=== PATIENT | female | born 1935 | race Caucasian/White ===

== ENCOUNTER 2017-12-31 15:56 | Observation (INO) | payer OTHER ==
[2017-12-31 16:26] VITALS: BMI 34.9
--- NOTE | 2017-12-31 16:32 | PDOC ---
History of Present Illness - General Chief Complaint: Pain Stated Complaint: ABD PAIN Time Seen by Provider: 12/31/17 16:24 History Source: Patient Exam Limitations: No Limitations - History of Present Illness Initial Comments: 12/31/17 16:32 This is an 82 YOF with h/o UTI, CVA, HTN, dyslipidemia, dementia, and depression who was BIBEMS from her SNF for lower abdominal discomfort, lightheadedness, nausea, small amount of vomiting x1 which was NBNB, and near- syncope this afternoon while at her SNF. She described attempting to have a bowel movement while on the toilet when she became lightheaded and had blurred vision. Staff came to help her to her bed to lay down, but she notes that her symptoms persisted despite resting. She denies any recent f/c, headache, neck pain, actual fainting, numbness, tingling, focal weakness, swelling, change in weight, burning on urination, urinary frequency, hematuria, strong-smelling urine, black/bloody stool, or other symptoms. She does not recall ever having had these symptoms in the past. She has not gotten medications for the symptoms. She denies any change in her normal PO intake of food or liquid. Past History - Past Medical History Allergies/Adverse Reactions: Allergies Allergy/AdvReac Type Severity Reaction Status Date / Time No Known Allergies Allergy Verified 12/31/17 16:22 Home Medications: Ambulatory Orders Donepezil HCl [Aricept -] 10 mg PO HS #0 tablet 08/26/12 Amlodipine Besylate 5 mg PO DAILY 12/31/17 Aspirin 81 mg PO DAILY 12/31/17 Atorvastatin Ca [Lipitor] 10 mg PO DAILY 12/31/17 Cholecalciferol (Vitamin D3) [Vitamin D3] 1,000 unit PO DAILY 12/31/17 Ferrous Sulfate 325 mg PO DAILY 12/31/17 Furosemide [Lasix -] 40 mg PO DAILY 12/31/17 Guaifenesin [Robafen] 100 mg PO Q4H 12/31/17 Mirabegron [Myrbetriq] 25 mg PO DAILY 12/31/17 Vortioxetine Hydrobromide [Trintellix] 10 mg PO DAILY 12/31/17 Anemia: No Asthma: No Cancer: No Cardiac Disorders: No CVA: Yes COPD: No CHF: No Dementia: Yes (alzheimers) Diabetes: No GI Disorders: Yes Disorders: Yes (" incontience") HTN: Yes Hypercholesterolemia: Yes Liver Disease: No Seizures: No Thyroid Disease: Yes - Surgical History Abdominal Surgery: Yes Appendectomy: Yes Cardiac Surgery: No Cholecystectomy: Yes Lung Surgery: No Neurologic Surgery: No Orthopedic Surgery: No - Immunization History Td Vaccination: Yes TDAP Vaccination: Yes Immunization Up to Date: Yes - Suicide/Smoking/Psychosocial Hx Smoking Status: No Smoking History: Never smoked Number of Cigarettes Smoked Daily: 0 Hx Alcohol Use: No Drug/Substance Use Hx: No Substance Use Type: None Hx Substance Use Treatment: No Review of Systems - Review of Systems Able to Perform ROS?: Yes Constitutional: Yes: Weakness. No: Chills, Fever, Unexplained wgt Loss HEENTM: No: Nose Congestion, Throat Pain Respiratory: No: Cough, Shortness of Breath Cardiac (ROS): No: Chest Pain, Palpitations ABD/GI: Yes: Nausea, Vomiting (one small episode), Other (abdominal pain). No: Constipated, Diarrhea, Rectal Bleeding : No: Burning, Dysuria Musculoskeletal: No: Back Pain, Neck Pain Integumentary: No: Bruising, Rash Neurological: No: Headache, Numbness, Tingling, Weakness, Dizziness Endocrine: No: Unexplained Weight Gain, Unexplained Weight Loss *Physical Exam - Vital Signs Initial Vital Signs Temp Pulse Resp BP Pulse Ox 98.1 F 96 H 20 126/64 97 12/31/17 16:15 12/31/17 16:15 12/31/17 16:15 12/31/17 16:15 12/31/17 16:15 12/31/17 16:47 GENERAL: nontoxic and well-appearing, nourished, a bit confused and tangential, no acute distress, speaking in full sentences HEENT: PERRLA, EOMI, moist mucous membranes, no posterior pharyngeal erythema, no tonsillar swelling or exudates, no cervical lymphadenopathy NECK: No midline ttp, no spinal stepoff or deformity, full ROM, supple CARDIOVASCULAR: Regular rate and rhythm, normal S1S2, 1/6 systolic murmur, no gallops or rubs, radial and DP pulses 2+ and symmetric, capillary refill <2 seconds, extremities warm and well-perfused Chest wall: Normal appearance, no rash, no bruising, no costal stepoff or deformity, nontender to compression LUNGS/RESPIRATORY: Occasional cough, no respiratory distress, normal and symmetric chest movements during respirations, lungs CTA bilaterally, equal breath sounds, no cyanosis, no nail clubbing GI/ABDOMEN: Normal symmetric appearance, normoactive bowel sounds, soft, mild diffuse lower abdominal tenderness to palpation, not peritoneal, no midline pulsatile masses, no palpated organomegaly : No CVA tenderness BACK: No midline ttp or stepoff or deformity of thoracic or lumbar spine EXTREMITIES: distal pulses 2+, warm and well-perfused, no LE pitting edema SKIN: Warm and dry, no pallor, no jaundice, no bruising, no rash, no skin breakdown, no cuts, no lesions NEUROLOGICAL: GCS 15, CN II-XII grossly intact, gait not tested, moving all extremities, 5/5 strength proximally and distally, no facial droop, no decreased sensation Heart Score/ECG Review #1 12/31/17 18:19 NSR, rate 71, normal axis and intervals, low voltage, no ischemic ST-T changes. ED Treatment Course - LABORATORY CBC & Chemistry Diagram: 12/31/17 17:25 12/31/17 17:25 Medical Decision Making - Medical Decision Making 12/31/17 17:16 Elderly female p/w lower abdominal pain, nausea, 1 episode vomiting, lightheadedness/pre-syncopal episode. VS: Exam: As noted in Physical Exam section. DDX IBNLT: UTI/pyelonephritis, renal colic, appendicitis, diverticulitis wwo abscess or perforation, colitis, SBO, bowel ischemia, bowel perforation, constipation, musculoskeletal, etc. W/U ordered: CBCD CMP Mg Phos Coags T&S UA UCx Abdominal/Pelvis CT TX ordered: IVF, Ofirmev Laboratory Tests 12/31/17 12/31/17 12/31/17 17:25 17:25 17:25 WBC 12.4 H RBC 5.27 H Hgb 14.3 Hct 44.8 D MCV 85.1 MCH 27.1 MCHC 31.8 L RDW 15.7 H Plt Count 297 MPV 8.8 Absolute Neuts (auto) 10.8 H Neutrophils % 87.5 H Lymphocytes % 6.5 L D Monocytes % 4.3 Eosinophils % 1.1 Basophils % 0.6 Nucleated RBC % 0 Sodium 142 Potassium 4.3 Chloride 107 Carbon Dioxide 26 Anion Gap 8 BUN 26 H Creatinine 1.2 Creat Clearance w eGFR 42.90 Random Glucose 92 Lactic Acid 1.4 Calcium 9.7 Phosphorus 3.1 Magnesium 2.4 Total Bilirubin 0.5 AST 22 ALT 22 Alkaline Phosphatase 91 Creatine Kinase 95 Troponin I 0.09 H Total Protein 7.5 Albumin 4.0 Troponin 0.09. This will be trended. 12/31/17 18:32 Reassessment: Patient states continued low abdominal pain/fullness. States continued nausea. Ordered is Zofran 4 mg. Vital Signs Temperature 98.1 F 12/31/17 16:15 Pulse Rate 97 H 12/31/17 18:35 Respiratory Rate 20 12/31/17 18:35 Blood Pressure 130/73 12/31/17 18:35 O2 Sat by Pulse Oximetry (%) 96 12/31/17 18:35 I spoke with the patient's daughter regarding the finding of cyst on her CT. I did convey that many times these cysts are benign but could possibly be malignant. I do strongly recommend to them that the patient needs followup regarding this potentially malignant cyst. The patient had troponin above reference range. The Pt is unsafe for discharge at this time. They require further hospital observation, workup, and treatment. Page sent to Dr. Chance agricultural extension officer for Dr. Gerber's service. 12/31/17 21:[address] Chance. The patient is to stay in Tele Obs. Decision to Admit order placed to Dr. Turner at Dr. Chance's request. 12/31/17 23:19 Family is leaving for the night, wish to be called with any significant updates. Daughter: Alberto at [phone]. Granddaughter in-law: Angelica at [phone]. *DC/Admit/Observation/Transfer Diagnosis at time of Disposition: Near syncope, Troponin I above reference range UTI (urinary tract infection) Qualifiers: Urinary tract infection type: acute cystitis Hematuria presence: without hematuria Qualified Code(s): N30.00 - Acute cystitis without hematuria Abdominal pain Qualifiers: Abdominal location: generalized Qualified Code(s): R10.84 - Generalized abdominal pain - Discharge Dispostion Condition at time of disposition: Guarded Decision to Admit order: Yes - Referrals Referrals: Valentín Pollard MD [Non Staff, Medical] - - Patient Instructions - Post Discharge Activity
[2017-12-31] MEDS ORDERED: SODIUM CHLORIDE 0.9% 500 ML INFUS.BAG IV ONE (17:26)
[2017-12-31] MEDS ORDERED: ACETAMINOPHEN 1000 MG/100 ML VIAL (NON FORMULARY) IVPB ONE (17:26)
[2017-12-31 17:47] LABS: BASO % 0.6 % (0-2.0); EOS % 1.1 % (0-4.5); HEMATOCRIT 44.8 % (32.4-45.2); HEMOGLOBIN 14.3 GM/dL (10.7-15.3); LYMPH % 6.5 % (8-40); MCH 27.1 pg (25.7-33.7); MCHC 31.8 g/dl (32.0-36.0); MEAN CELL VOLUME 85.1 fl (80-96); MEAN PLT VOLUME 8.8 fl (7.5-11.1); MONO % 4.3 % (3.8-10.2); NEUT % 87.5 % (42.8-82.8); PLATELET COUNT 297 K/MM3 (134-434); RBC 5.27 M/mm3 (3.60-5.2); RDW 15.7 % (11.6-15.6); WHITE BLOOD COUNT 12.4 K/mm3 (4.0-10.0)
[2017-12-31 18:13] LABS: ALK PHOS 91 U/L (45-117); ANION GAP 8 MMOL/L (8-16); BILIRUBIN,TOTAL 0.5 mg/dL (0.2-1); BLOOD UREA NITROGEN 26 mg/dL (7-18); CALCIUM 9.7 mg/dL (8.5-10.1); CHLORIDE 107 mmol/L (98-107); CO2 26 mmol/L (21-32); CREATININE 1.2 mg/dL (0.55-1.3); GLUCOSE,RANDOM 92 mg/dL (74-106); MAGNESIUM 2.4 mg/dL (1.8-2.4); PHOSPHOROUS 3.1 mg/dL (2.5-4.9); POTASSIUM 4.3 mmol/L (3.5-5.1); SGOT/AST 22 U/L (15-37); SGPT/ALT 22 U/L (13-61); SODIUM 142 mmol/L (136-145); TOT PROT 7.5 g/dl (6.4-8.2)
[2017-12-31] MEDS ORDERED: ACETAMINOPHEN INJECTION 100 ML IVPB ONE (18:28)
[2017-12-31] MEDS ORDERED: ONDANSETRON 4 MG/2 ML VIAL IVPUSH ONE (18:33)
--- NOTE | 2017-12-31 18:35 | PDOC ---
Attending Attestation - Resident Resident Name: Radhika Butler - ED Attending Attestation I have performed the following: I have examined & evaluated the patient, The case was reviewed & discussed with the resident, I agree w/resident's findings & plan, Exceptions are as noted - HPI HPI: 12/31/17 18:33 82-year-old female patient with history of urinary tract infection, stroke, hypertension, hyperlipidemia, dementia, depression brought in from independent living assisted facility for near-syncope and lower abdominal pain. The patient reports that she felt unwell today. As she tried to move her bowels she started noticing she is becoming lightheaded and dizzy. She had one episode of vomiting. She did not faint. Denies headache, chest pain or shortness of breath. But did develop diffuse lower abdominal pain. She reports a history of appendectomy, cholecystectomy. Denies urinary symptoms. Because she continued felt lightheaded and unwell even after laying down, the psychology assistant at the living assisted facility sent the patient to the ER. - Physicial Exam PE: 12/31/17 18:33 GENERAL: Awake, alert, and fully oriented, in no acute distress HEAD: No signs of trauma EYES: EOMI, sclera anicteric, conjunctiva clear ENT: Auricles normal inspection, hearing grossly normal, nares patent, Moist mucosa NECK: Normal ROM, supple, LUNGS: Breath sounds equal, clear to auscultation bilaterally. No wheezes, and no crackles HEART: Regular rate and rhythm, normal S1 and S2, no murmurs, rubs or gallops ABDOMEN: Soft, diffuse lower abdominal tenderness No guarding, no rebound. No masses EXTREMITIES: Normal range of motion, no edema. No clubbing or cyanosis. No cords, erythema, or tenderness NEUROLOGICAL: Cranial nerves II through XII grossly intact. Normal speech SKIN: Warm, Dry, normal turgor, no rashes or lesions noted. - Medical Decision Making 12/31/17 18:34 Vital Signs Temp Pulse Resp BP Pulse Ox 98.1 F 96 H 20 126/64 97 12/31/17 16:15 12/31/17 16:15 12/31/17 16:15 12/31/17 16:15 12/31/17 16:15 This is an 82-year-old female patient who developed near syncope in the setting of moving her bowels. This could potentially be vasovagal syncope or near- syncope but given her cardiac history, we'll obtain a troponin and place patient on telemetry. We will need to investigate lower abdominal pain with loose stools with a CT scan abdomen pelvis. Differential includes diverticulitis , colitis, gastroenteritis. We'll obtain labs, treat pain and reassess. 12/31/17 20:41 CBC, BMP 12/31/17 17:25 12/31/17 17:25 CMP Sodium 142 mmol/L (136-145) 12/31/17 17:25 Potassium 4.3 mmol/L (3.5-5.1) 12/31/17 17:25 Chloride 107 mmol/L (98-107) 12/31/17 17:25 Carbon Dioxide 26 mmol/L (21-32) 12/31/17 17:25 Anion Gap 8 MMOL/L (8-16) 12/31/17 17:25 BUN 26 mg/dL (7-18) H 12/31/17 17:25 Creatinine 1.2 mg/dL (0.55-1.3) 12/31/17 17:25 Creat Clearance w eGFR 42.90 (>60) 12/31/17 17:25 Random Glucose 92 mg/dL (74-106) 12/31/17 17:25 Lactic Acid 1.4 mmol/L (0.4-2.0) 12/31/17 17:25 Calcium 9.7 mg/dL (8.5-10.1) 12/31/17 17:25 Phosphorus 3.1 mg/dL (2.5-4.9) 12/31/17 17:25 Magnesium 2.4 mg/dL (1.8-2.4) 12/31/17 17:25 Total Bilirubin 0.5 mg/dL (0.2-1) 12/31/17 17:25 AST 22 U/L (15-37) 12/31/17 17:25 ALT 22 U/L (13-61) 12/31/17 17:25 Alkaline Phosphatase 91 U/L (45-117) 12/31/17 17:25 Creatine Kinase 95 IU/L (26-192) 12/31/17 17:25 Troponin I 0.09 ng/ml (0.00-0.05) H 12/31/17 17:25 Total Protein 7.5 g/dl (6.4-8.2) 12/31/17 17:25 Albumin 4.0 g/dl (3.4-5.0) 12/31/17 17:25 Urine Test Results Urine Color Yellow 12/31/17 19:10 Urine Appearance Slcloudy 12/31/17 19:10 Urine pH 5.0 (5.0-8.0) 12/31/17 19:10 Ur Specific [place] 1.013 (1.010-1.035) 12/31/17 19:10 Urine Protein Negative (NEGATIVE) 12/31/17 19:10 Urine Glucose (UA) Negative (NEGATIVE) 12/31/17 19:10 Urine Ketones Negative (NEGATIVE) 12/31/17 19:10 Urine Blood Negative (NEGATIVE) 12/31/17 19:10 Urine Nitrite Negative (NEGATIVE) 12/31/17 19:10 Urine Bilirubin Negative (<2.0 mg/dL) 12/31/17 19:10 Ur Leukocyte Esterase 1+ (NEGATIVE) H 12/31/17 19:10 Ur Epithelial Cells Rare /HPF (FEW) 12/31/17 19:10 Urine Bacteria Rare /hpf (NONE SEEN) 12/31/17 19:10 CAT scan demonstrates no acute findings of the head and pelvis however, there is a persistent left ovarian cyst which needs to follow-up with a drying oven tender. As concerns for malignancy is always an issue. We'll inform the patient's daughter regards to the findings. Otherwise, the patient has no other acute findings. There is a small punctate focus of air and gas in the urinary bladder suggestive recent catheterization. UA shows positive for UTI. Microbiology reviewed. Will treat with ceftriaxone. Given the symptoms, and the slightly elevated troponin, we will observe the patient hospital under telemetry. It may be possible that the patient may be having enteritis or viral syndrome for the symptoms. We'll continue give IV fluids and admit the patient to hospital. 12/31/17 20:42 Heart Score/ECG Review #1 ECG reviewed & interpreted by me at: 18:20 12/31/17 18:34 NSR 71, no std/kaila, T wave flat III, low voltage QRS, QTC 458 msec #2 ECG reviewed & interpreted by me at: 01:00 01/01/18 00:59 NSR 70, no std/kaila, T wave flat III, avF, V5-V6, QTC 447 msec
[2017-12-31] MEDS ORDERED: ONDANSETRON 4 MG/2 ML VIAL ONE (19:17)
[2017-12-31 19:51] LABS: URINE APPEARANCE SLCLOUDY; URINE BILIRUBIN NEGATIVE (<2.0 mg/dL); URINE COLOR YELLOW; URINE GLUCOSE (UA) NEGATIVE (NEGATIVE); URINE KETONE NEGATIVE (NEGATIVE); URINE LEUK ESTERASE 1+ (NEGATIVE); URINE NITRITE NEGATIVE (NEGATIVE); URINE PROTEIN NEGATIVE (NEGATIVE); URINE UROBILINOGEN NEGATIVE mg/dL (0.2-1.0)
[2017-12-31 20:02] LABS: EPI CELLS RARE /HPF (FEW); URINE BACTERIA RARE /hpf (NONE SEEN)
[2017-12-31] MEDS ORDERED: CEFTRIAXONE 1,000 MG in DEXTROSE 5%-WATER - 50 ML IVPB ONE (20:42)
[2017-12-31] MEDS ORDERED: CEFTRIAXONE 1 GM/50 ML BAG ONE (21:12)
[2017-12-31] MEDS ORDERED: ONDANSETRON 4 MG/2 ML VIAL IVPUSH PRN (22:01)
[2017-12-31] MEDS ORDERED: MAGNESIUM HYDROX 2400MG/30ML ORAL SUSPENSION 30 ML CUP PO PRN (22:02)
[2017-12-31 23:59] LABS: CHOLESTEROL 203 mg/dL (50-200); HDL CHOLESTEROL 60 mg/dL (40-60); TRIGLYCERIDES 175 mg/dL (0-150)
[2018-01-01] MEDS: SODIUM CHLORIDE 1,000 ML IV SCH ×2 (00:38→21:38)
[2018-01-01] MEDS: DONEPEZIL HCL 10 MG TABLET (FP) PO SCH ×2 (00:53→21:37)
[2018-01-01 08:37] LABS: BASO % 0.2 % (0-2.0); EOS % 1.4 % (0-4.5); HEMATOCRIT 40.9 % (32.4-45.2); HEMOGLOBIN 13.2 GM/dL (10.7-15.3); LYMPH % 13.1 % (8-40); MCH 27.8 pg (25.7-33.7); MCHC 32.3 g/dl (32.0-36.0); MEAN CELL VOLUME 85.9 fl (80-96); MEAN PLT VOLUME 8.6 fl (7.5-11.1); MONO % 7.1 % (3.8-10.2); NEUT % 78.2 % (42.8-82.8); PLATELET COUNT 278 K/MM3 (134-434); RBC 4.76 M/mm3 (3.60-5.2); RDW 15.6 % (11.6-15.6); WHITE BLOOD COUNT 9.5 K/mm3 (4.0-10.0)
[2018-01-01 08:50] LABS: ALBUMIN 3.4 g/dl (3.4-5.0); ALK PHOS 80 U/L (45-117); ANION GAP 8 MMOL/L (8-16); BILIRUBIN,TOTAL 0.8 mg/dL (0.2-1); BLOOD UREA NITROGEN 21 mg/dL (7-18); CALCIUM 9.2 mg/dL (8.5-10.1); CHLORIDE 109 mmol/L (98-107); CO2 26 mmol/L (21-32); CREATININE 1.1 mg/dL (0.55-1.3); GLUCOSE,RANDOM 98 mg/dL (74-106); POTASSIUM 4.2 mmol/L (3.5-5.1); SGOT/AST 19 U/L (15-37); SGPT/ALT 18 U/L (13-61); SODIUM 142 mmol/L (136-145); TOT PROT 6.5 g/dl (6.4-8.2)
--- NOTE | 2018-01-01 09:30 | EKG ---
Test Reason : Blood Pressure : / mmHG Vent. Rate : 071 BPM Atrial Rate : 071 BPM P-R Int : 186 ms QRS Dur : 074 ms QT Int : 422 ms P-R-T Axes : 036 021 039 degrees QTc Int : 458 ms NORMAL SINUS RHYTHM LOW VOLTAGE QRS BORDERLINE ECG WHEN COMPARED WITH ECG OF 27-MAR-2013 11:50, NONSPECIFIC T WAVE ABNORMALITY NOW EVIDENT IN INFERIOR LEADS Confirmed by ANNA LAMBERT, RUBY ([id number]) on 01/01/2018 9:30:21 AM Referred By: Confirmed By:RUBY CASTILLO MD
[2018-01-01] MEDS ORDERED: ASPIRIN 81 MG CHEWABLE TABLETS ONE (10:27)
[2018-01-01] MEDS: ASPIRIN 81 MG CHEWABLE TABLETS PO SCH (10:30)
--- NOTE | 2018-01-01 11:26 | HP ---
Admitting History and Physical - Primary Care Physician PCP: Duy Gerber - Admission Chief Complaint: Near syncope History of Present Illness: 82 yrs old F lives at home independent assisted living resident H/O HTN, dyslipedemia, Dementia, yesterday present with c/o lower abdominal pain and an episode of near of syncope, patient was having lower abdominal discomfort since morning on felt Dizzy, light headed and weak while straining came to Ed for evaluation in the Ed hypodermically stable denies any chest pain, SOB or Palpitation no c/o focal neurological weakness or LOC denies any head ache or diplopia, lab w/u shows mildly elevated BUN/Creat from base line UA + for WBC, CT abd no acute changes admitted for further evaluation and management to R/O ACS History Source: Patient - Past Medical History PAPER COLORER: Yes: Alzheimer's, CVA, Dementia Cardiovascular: Yes: HTN, Hyperlipdemia - Smoking History Smoking history: Never smoked Aproximately how many cigarettes per day: 0 - Alcohol/Substance Use Hx Alcohol Use: No - Social History Usual Living Arrangement: Yes: Assisted Living Home Medications - Allergies Allergies/Adverse Reactions: Allergies Allergy/AdvReac Type Severity Reaction Status Date / Time No Known Allergies Allergy Verified 12/31/17 16:22 - Home Medications Home Medications: Ambulatory Orders Donepezil HCl [Aricept -] 10 mg PO HS #0 tablet 08/26/12 Amlodipine Besylate 5 mg PO DAILY 12/31/17 Aspirin 81 mg PO DAILY 12/31/17 Atorvastatin Ca [Lipitor] 10 mg PO DAILY 12/31/17 Cholecalciferol (Vitamin D3) [Vitamin D3] 1,000 unit PO DAILY 12/31/17 Ferrous Sulfate 325 mg PO DAILY 12/31/17 Furosemide [Lasix -] 40 mg PO DAILY 12/31/17 Guaifenesin [Robafen] 100 mg PO Q4H 12/31/17 Mirabegron [Myrbetriq] 25 mg PO DAILY 12/31/17 Vortioxetine Hydrobromide [Trintellix] 10 mg PO DAILY 12/31/17 Family Disease History - Family Disease History Family History: Unremarkable Review of Systems - Review of Systems Constitutional: denies: Chills, Diaphoresis, Fever, Lethargy Eyes: denies: Blind Spots, Blurred Vision, Double Vision, Eye Pain HENT: denies: Difficult Swallowing, Ear Discharge, Ear Pain, Epistaxis Neck: denies: Decreased ROM, Lumps, Pain on Movement, Stiffness Cardiovascular: denies: Chest Pain, Edema, Palpitations, Shortness of Breath Respiratory: denies: Cough, Exercise Intolerance, Hemoptysis, Orthopnea Gastrointestinal: reports: Abdominal Pain, Constipation, Nausea, Vomiting. denies: Bloating, Diarrhea, Indigestion, Melena, Rectal Bleeding Genitourinary: denies: Burning, Discharge, Dysuria Musculoskeletal: denies: Back Pain, Crepitus, Decreased ROM Integumentary: denies: Blister, Bruising, Change in Color Neurological: denies: Change in Speech, Confusion, Dizziness Endocrine: denies: Excessive Sweating, Flushing Hematology/Lymphatic: denies: Easily Bruised Psychiatric: denies: Altered Sleep Pattern Physical Examination Vital Signs: Vital Signs Temperature 98.1 F 12/31/17 16:15 Pulse Rate 80 01/01/18 07:56 Respiratory Rate 17 01/01/18 07:56 Blood Pressure 123/57 L 01/01/18 07:56 O2 Sat by Pulse Oximetry (%) 89 L 01/01/18 07:56 Constitutional: Yes: Well Nourished, No Distress, Calm HENT: Yes: Atraumatic Neck: Yes: Supple, Trachea Midline. No: Decreased ROM, Lymphadenopathy Cardiovascular: Yes: Regular Rate and Rhythm, S1. No: Bruit, JVD, Murmur Respiratory: Yes: Regular, CTA Bilaterally Gastrointestinal: Yes: Normal Bowel Sounds, Soft Musculoskeletal: No: Back Pain, Joint Stiffness Extremities: Yes: WNL Edema: No Peripheral Pulses: Left Doralis Pedis: 1+, Right Dorsalis Pedis: 1+ Neurological: Yes: Alert, Oriented. No: Aphasia, Asterixis ...Motor Strength: WNL, LUE, LLE, RUE, RLE Labs: CBC, BMP 01/01/18 06:00 01/01/18 06:00 Imaging - Results Chest X-ray: Report Reviewed (No acute infiltrates) Cat Scan: Report Reviewed (Abdomen and Pelvis; Unremarkable) EKG: Report Reviewed ([address] chnages ? inf leads changes) Problem List - Problems (1) Near syncope Assessment/Plan: Most likely Neurocardiogenic considering old age will evaluate to R/O Cardiac etioloy, mild falt elevation of troponin I on ASA, statin, F/U Cardiology input ECHO , Lipid and TSH. Code(s): R55 - SYNCOPE AND COLLAPSE (2) Troponin I above reference range Assessment/Plan: Mild elevation no chest pain or SOB will F/U serial CE Trop I 0.09 and 0.11, no interval EKG changes, Cont ASA increase Lipitor to 20 as LDL 128 F/U Cardioloy recommondations Code(s): R74.8 - ABNORMAL LEVELS OF OTHER SERUM ENZYMES (3) Abdominal pain Assessment/Plan: Resolved probably due to UTI CT abd no acute changes Code(s): R10.9 - UNSPECIFIED ABDOMINAL PAIN Qualifiers: Abdominal location: generalized Qualified Code(s): R10.84 - Generalized abdominal pain (4) UTI (urinary tract infection) Assessment/Plan: Cont Ceftriaxone F/U U culture Code(s): N39.0 - URINARY TRACT INFECTION, SITE NOT SPECIFIED Qualifiers: Urinary tract infection type: acute cystitis Hematuria presence: without hematuria Qualified Code(s): N30.00 - Acute cystitis without hematuria (5) HTN (hypertension) Assessment/Plan: Cont Home meds Code(s): I10 - ESSENTIAL (PRIMARY) HYPERTENSION (6) Dyslipidemia Assessment/Plan: Cont Lipitor Code(s): E78.5 - HYPERLIPIDEMIA, UNSPECIFIED (7) Dementia Assessment/Plan: Stable cont Home meds Code(s): F03.90 - UNSPECIFIED DEMENTIA WITHOUT BEHAVIORAL DISTURBANCE (8) CKD (chronic kidney disease) stage 3, GFR 30-59 ml/min Assessment/Plan: Mild elevation of BUN/Cret from base line improving with IV Hydration Hold Lasix Code(s): N18.3 - CHRONIC KIDNEY DISEASE, STAGE 3 (MODERATE) (9) Acute kidney failure Assessment/Plan: Base line CKD 3 admitted with elevated BUN/Cret improvig on Hydration Hold Lasix Code(s): N17.9 - ACUTE KIDNEY FAILURE, UNSPECIFIED (10) Cough Assessment/Plan: CXR normal cont cough syrup on IV Ceftriaxone Code(s): R05 - COUGH
[2018-01-01] MEDS: CEFTRIAXONE 1 GM in DEXTROSE 5%-WATER - 50 ML IVPB SCH (14:15)
[2018-01-01] MEDS ORDERED: CEFTRIAXONE 1 GM/50 ML BAG ONE (14:25)
--- NOTE | 2018-01-01 17:42 | CON.CARD ---
Cardiology Consult (text) - Consultation Consultation Note: cc: presyncope hpi: 82 f hx htn, hld, cva, here with presyncope. Pt was at CT and went to use bathroom to have BM. While sitting on toilet she felt lightheaded and nausea. She got up and laid down but still felt dizzy. No cp sob palps loc pnd orthopnea le edema. In ER feeling better now. pmh: per hpi psh: cholecystectomy social: no tob fam: nc ros: per hpi; no diarrhea castrejon vision changes muscle pains abd pain hematuria dysuria meds: Home Medications Medication Instructions Recorded Donepezil HCl [Aricept -] 10 mg PO HS #0 tablet 08/26/12 Amlodipine Besylate 5 mg PO DAILY 12/31/17 Aspirin 81 mg PO DAILY 12/31/17 Atorvastatin Ca [Lipitor] 10 mg PO DAILY 12/31/17 Cholecalciferol (Vitamin D3) 1,000 unit PO DAILY 12/31/17 [Vitamin D3] Ferrous Sulfate 325 mg PO DAILY 12/31/17 Furosemide [Lasix -] 40 mg PO DAILY 12/31/17 Guaifenesin [Robafen] 100 mg PO Q4H 12/31/17 Mirabegron [Myrbetriq] 25 mg PO DAILY 12/31/17 Vortioxetine Hydrobromide 10 mg PO DAILY 12/31/17 [Trintellix] pe: Vital Signs Period Temp Pulse Resp BP Sys/Maharaj Pulse Ox Last 24 Hr 98.8 F 75-97 17-20 108-130/57-73 89-96 nad no jvd rrr s1s2 no mrg cta bl nl eff aaox3 no le e/c/c abd nt nd pos bs no jaundice diaphoresis pos dp pt no carotid bruits Laboratory Last Values WBC 9.5 K/mm3 (4.0-10.0) 01/01/18 06:00 RBC 4.76 M/mm3 (3.60-5.2) 01/01/18 06:00 Hgb 13.2 GM/dL (10.7-15.3) 01/01/18 06:00 Hct 40.9 % (32.4-45.2) 01/01/18 06:00 MCV 85.9 fl (80-96) 01/01/18 06:00 MCH 27.8 pg (25.7-33.7) 01/01/18 06:00 MCHC 32.3 g/dl (32.0-36.0) 01/01/18 06:00 RDW 15.6 % (11.6-15.6) 01/01/18 06:00 Plt Count 278 K/MM3 (134-434) 01/01/18 06:00 MPV 8.6 fl (7.5-11.1) 01/01/18 06:00 Absolute Neuts (auto) 7.5 K/mm3 (1.5-8.0) 01/01/18 06:00 Neutrophils % 78.2 % (42.8-82.8) 01/01/18 06:00 Lymphocytes % 13.1 % (8-40) D 01/01/18 06:00 Monocytes % 7.1 % (3.8-10.2) 01/01/18 06:00 Eosinophils % 1.4 % (0-4.5) 01/01/18 06:00 Basophils % 0.2 % (0-2.0) 01/01/18 06:00 Nucleated RBC % 0 % (0-0) 01/01/18 06:00 Sodium 142 mmol/L (136-145) 01/01/18 06:00 Potassium 4.2 mmol/L (3.5-5.1) 01/01/18 06:00 Chloride 109 mmol/L (98-107) H 01/01/18 06:00 Carbon Dioxide 26 mmol/L (21-32) 01/01/18 06:00 Anion Gap 8 MMOL/L (8-16) 01/01/18 06:00 BUN 21 mg/dL (7-18) H 01/01/18 06:00 Creatinine 1.1 mg/dL (0.55-1.3) 01/01/18 06:00 Creat Clearance w eGFR 47.43 (>60) 01/01/18 06:00 Random Glucose 98 mg/dL (74-106) 01/01/18 06:00 Lactic Acid 1.4 mmol/L (0.4-2.0) 12/31/17 17:25 Calcium 9.2 mg/dL (8.5-10.1) 01/01/18 06:00 Phosphorus 3.1 mg/dL (2.5-4.9) 12/31/17 17:25 Magnesium 2.4 mg/dL (1.8-2.4) 12/31/17 17:25 Total Bilirubin 0.8 mg/dL (0.2-1) 01/01/18 06:00 AST 19 U/L (15-37) 01/01/18 06:00 ALT 18 U/L (13-61) 01/01/18 06:00 Alkaline Phosphatase 80 U/L (45-117) 01/01/18 06:00 Creatine Kinase 95 IU/L (26-192) 12/31/17 17:25 Troponin I 0.11 ng/ml (0.00-0.05) H 01/01/18 06:00 Total Protein 6.5 g/dl (6.4-8.2) 01/01/18 06:00 Albumin 3.4 g/dl (3.4-5.0) 01/01/18 06:00 Triglycerides 175 mg/dL (0-150) H 12/31/17 17:25 Cholesterol 203 mg/dL (50-200) H 12/31/17 17:25 Total LDL Cholesterol 128 mg/dL (5-100) H 12/31/17 17:25 HDL Cholesterol 60 mg/dL (40-60) 12/31/17 17:25 TSH 0.69 uIU/ml (0.358-3.74) 01/01/18 06:00 Urine Color Yellow 12/31/17 19:10 Urine Appearance Slcloudy 12/31/17 19:10 Urine pH 5.0 (5.0-8.0) 12/31/17 19:10 Ur Specific [place]ord 1.013 (1.010-1.035) 12/31/17 19:10 Urine Protein Negative (NEGATIVE) 12/31/17 19:10 Urine Glucose (UA) Negative (NEGATIVE) 12/31/17 19:10 Urine Ketones Negative (NEGATIVE) 12/31/17 19:10 Urine Blood Negative (NEGATIVE) 12/31/17 19:10 Urine Nitrite Negative (NEGATIVE) 12/31/17 19:10 Urine Bilirubin Negative (<2.0 mg/dL) 12/31/17 19:10 Urine Urobilinogen Negative mg/dL (0.2-1.0) 12/31/17 19:10 Ur Leukocyte Esterase 1+ (NEGATIVE) H 12/31/17 19:10 Urine WBC (Auto) 26 /hpf (3-5) 12/31/17 19:10 Urine RBC (Auto) 1 /hpf (0-3) 12/31/17 19:10 Ur Epithelial Cells Rare /HPF (FEW) 12/31/17 19:10 Urine Bacteria Rare /hpf (NONE SEEN) 12/31/17 19:10 echo 03/2013: nl lv/rv, mild mr, mild mod tr, mild ar, rvsp 30-40 ecg: sr nl intervals no ischemic changes cxr: clear lungs a/p: 82 f hx htn, hld, cva, here with presyncope. presyncope: -seems vasovagal -no signs acs, chf, arrhythmia -check ortho vs -check echo -monitor tele -rec'd increase po hydration htn: -stable hld: -cont statin pos trops: -borderline trops, nl ck, similar to prior values from 2012 and 2013, not c/w acs
--- NOTE | 2018-01-01 18:02 | EKG ---
Test Reason : Blood Pressure : / mmHG Vent. Rate : 070 BPM Atrial Rate : 070 BPM P-R Int : 182 ms QRS Dur : 072 ms QT Int : 408 ms P-R-T Axes : 041 021 032 degrees QTc Int : 440 ms NORMAL SINUS RHYTHM NORMAL ECG WHEN COMPARED WITH ECG OF 01-JAN-2018 00:54, NO SIGNIFICANT CHANGE WAS FOUND Confirmed by RUBY CASTILLO MD ([id number]) on 01/01/2018 6:01:57 PM Referred By: Delia MARRUFO Confirmed By:RUBY CASTILLO MD
[2018-01-01] MEDS: guaiFENesin 200 MG/10 ML 10 ML UNIT-DOSE CUPS PO PRN (21:36)
[2018-01-01] MEDS: ATORVASTATIN CA 20 MG TABLET (FP) PO SCH (21:37)
[2018-01-01] MEDS: NYSTATIN 100000 UNIT/GM TOPICAL OINTMENT 15 GM TUBE TP SCH (21:39)
[2018-01-01] MEDS ORDERED: ATORVASTATIN CA 10 MG TABLET (FP) PO SCH (22:00)
[2018-01-01] MEDS ORDERED: PT OWN MED DRAWER 7, Y5N ONE (22:00)
[2018-01-02] MEDS ORDERED: ACETAMINOPHEN 325 MG TABLET (FP) ONE (02:40)
[2018-01-02] MEDS ORDERED: cefTRIAXone SODIUM 1 GM VIAL ONE (09:27)
[2018-01-02] MEDS ORDERED: DEXTROSE 5%-WATER - 50 ML IVPB ONE (09:28)
[2018-01-02] MEDS: CEFTRIAXONE 1 GM in DEXTROSE 5%-WATER - 50 ML IVPB SCH (09:34)
[2018-01-02] MEDS: NYSTATIN 100000 UNIT/GM TOPICAL OINTMENT 15 GM TUBE TP SCH ×2 (09:34→21:14)
[2018-01-02] MEDS: ASPIRIN 81 MG CHEWABLE TABLETS PO SCH (09:35)
[2018-01-02] MEDS: amLODIPine BESYLATE 5 MG TABLET (FP) PO SCH (09:35)
[2018-01-02] MEDS ORDERED: PATIENT'S OWN MEDICATION (NON-FORMULARY) (Mirabegron [Myrbetriq] 25 MG) PO SCH (10:00)
[2018-01-02] MEDS ORDERED: PATIENT'S OWN MEDICATION (NON-FORMULARY) (Vortioxetine Hydrobromide [Trintellix] 10 MG) PO SCH (10:00)
--- NOTE | 2018-01-02 10:31 | PN ---
Progress Note (short form) - Note Progress Note: s: no cp sob palps dizzy o: Vital Signs Period Temp Pulse Resp BP Sys/Maharaj Pulse Ox Last 24 Hr 98.7 F-98.8 F 75-75 20 108-134/61-70 95 nad no jvd rrr s1s2 no mrg cta bl nl eff aaox3 no le e/c/c abd nt nd pos bs no jaundice diaphoresis Current Medications Generic Name Dose Route Start Last Admin Trade Name Freq PRN Reason Stop Dose Admin Amlodipine Besylate 5 mg 01/02/18 10:00 01/02/18 09:35 Norvasc - PO 5 mg DAILY CRISSY Administration Aspirin 81 mg 01/01/18 10:00 01/02/18 09:35 Asa - PO 81 mg DAILY CRISSY Administration Atorvastatin Calcium 20 mg 01/01/18 22:00 01/01/18 21:37 Lipitor - PO 20 mg HS CRISSY Administration Donepezil HCl 10 mg 12/31/17 22:00 01/01/18 21:37 Aricept - PO 10 mg HS CRISSY Administration Guaifenesin 10 ml 01/01/18 19:34 01/01/18 21:36 Robitussin - PO 10 ml Q6H PRN Administration COUGH Sodium Chloride 1,000 mls @ 50 mls/hr 12/31/17 22:15 01/01/18 21:38 Normal Saline - IV 50 mls/hr ASDIR CRISSY Administration Ceftriaxone Sodium 1 gm/ 50 mls @ 100 mls/hr 01/01/18 14:00 01/02/18 09:34 Dextrose IVPB 100 mls/hr DAILY CRISSY Administration Magnesium Hydroxide 30 ml 12/31/17 22:02 Milk Of Magnesia - PO DAILY PRN CONSTIPATION Non-Formulary Medication 25 mg 01/02/18 10:00 Mirabegron [Myrbetriq] PO DAILY CRISSY Non-Formulary Medication 10 mg 01/02/18 10:00 Vortioxetine Hydrobromide [Trintellix] PO DAILY CRISSY Nystatin 1 applic 01/01/18 22:00 01/02/18 09:34 Mycostatin Ointment - TP 1 applic BID CRISSY Administration Ondansetron HCl 4 mg 12/31/17 22:01 Zofran Injection IVPUSH Q6H PRN NAUSEA CBC, BMP 01/01/18 06:00 01/01/18 06:00 echo 03/2013: nl lv/rv, mild mr, mild mod tr, mild ar, rvsp 30-40 ecg: sr nl intervals no ischemic changes cxr: clear lungs tele: sr a/p: 82 f hx htn, hld, cva, here with presyncope. presyncope: -seems vasovagal -no signs acs, chf, arrhythmia -check ortho vs -check echo -tele benign -rec'd increase po hydration htn: -stable hld: -cont statin pos trops: -borderline trops, nl ck, similar to prior values from 2012 and 2013, not c/w acs
--- NOTE | 2018-01-02 11:18 | PN ---
Progress Note, Physician Chief Complaint: No new complaints , afebrile - Current Medication List Current Medications: Active Medications Amlodipine Besylate (Norvasc -) 5 mg PO DAILY [facility] Last Admin: 01/02/18 09:35 Dose: 5 mg Aspirin (Asa -) 81 mg PO DAILY [facility] Last Admin: 01/02/18 09:35 Dose: 81 mg Atorvastatin Calcium (Lipitor -) 20 mg PO HS [facility] Last Admin: 01/01/18 21:37 Dose: 20 mg Donepezil HCl (Aricept -) 10 mg PO HS [facility] Last Admin: 01/01/18 21:37 Dose: 10 mg Guaifenesin (Robitussin -) 10 ml PO Q6H PRN PRN Reason: COUGH Last Admin: 01/01/18 21:36 Dose: 10 ml Sodium Chloride (Normal Saline -) 1,000 mls @ 50 mls/hr IV ASDIR [facility] Last Admin: 01/01/18 21:38 Dose: 50 mls/hr Ceftriaxone Sodium 1 gm/ (Dextrose) 50 mls @ 100 mls/hr IVPB DAILY [facility] Last Admin: 01/02/18 09:34 Dose: 100 mls/hr Magnesium Hydroxide (Milk Of Magnesia -) 30 ml PO DAILY PRN PRN Reason: CONSTIPATION Non-Formulary Medication (Mirabegron [Myrbetriq]) 25 mg PO DAILY [facility] Non-Formulary Medication (Vortioxetine Hydrobromide [Trintellix]) 10 mg PO DAILY [facility] Nystatin (Mycostatin Ointment -) 1 applic TP BID [facility] Last Admin: 01/02/18 09:34 Dose: 1 applic Ondansetron HCl (Zofran Injection) 4 mg IVPUSH Q6H PRN PRN Reason: NAUSEA - Objective Vital Signs: Vital Signs Temperature 98.7 F 01/01/18 19:00 Pulse Rate 75 01/01/18 19:00 Respiratory Rate 20 01/01/18 19:00 Blood Pressure 134/70 01/01/18 19:00 O2 Sat by Pulse Oximetry (%) 95 01/01/18 19:00 Constitutional: Yes: Well Nourished, No Distress, Calm HENT: Yes: Atraumatic Neck: Yes: Supple, Trachea Midline. No: Decreased ROM, Lymphadenopathy Cardiovascular: Yes: Regular Rate and Rhythm, S1. No: Bruit, JVD, Murmur Respiratory: Yes: Regular, CTA Bilaterally Gastrointestinal: Yes: Normal Bowel Sounds, Soft Musculoskeletal: No: Back Pain, Joint Stiffness Extremities: Yes: WNL Edema: No Peripheral Pulses: Left Doralis Pedis: 1+, Right Dorsalis Pedis: 1+ Neurological: Yes: Alert, Oriented. No: Aphasia, Asterixis ...Motor Strength: WNL, LUE, LLE, RUE, RLE Labs: CBC, BMP 01/01/18 06:00 01/01/18 06:00 Microbiology 12/31/17 19:10 Urine Culture - Preliminary Urine - Urine Clean Catch Lactose Fermenting Neg Bacilli Problem List - Problems (1) Near syncope Assessment/Plan: Most likely Neurocardiogenic will F/U ECHO no arrythmia on telemonitor Cardiology nput appreciated Code(s): R55 - SYNCOPE AND COLLAPSE (2) Troponin I above reference range Assessment/Plan: Mild elevation no chest pain or SOB serial CE Trop I 0.09 and 0.11, no interval EKG changes, Cont ASA increase Lipitor to 20 as LDL 128 F/U Cardioloy recommendations Code(s): R74.8 - ABNORMAL LEVELS OF OTHER SERUM ENZYMES (3) Abdominal pain Assessment/Plan: Resolved probably due to UTI CT abd no acute changes Code(s): R10.9 - UNSPECIFIED ABDOMINAL PAIN Qualifiers: Abdominal location: generalized Qualified Code(s): R10.84 - Generalized abdominal pain (4) UTI (urinary tract infection) Assessment/Plan: 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 Qualifiers: Urinary tract infection type: acute cystitis Hematuria presence: without hematuria Qualified Code(s): N30.00 - Acute cystitis without hematuria (5) HTN (hypertension) Assessment/Plan: Cont Home meds Code(s): I10 - ESSENTIAL (PRIMARY) HYPERTENSION (6) Dyslipidemia Assessment/Plan: Cont Lipitor Code(s): E78.5 - HYPERLIPIDEMIA, UNSPECIFIED (7) Dementia Assessment/Plan: Stable cont Home meds Code(s): F03.90 - UNSPECIFIED DEMENTIA WITHOUT BEHAVIORAL DISTURBANCE (8) CKD (chronic kidney disease) stage 3, GFR 30-59 ml/min Assessment/Plan: Mild elevation of BUN/Cret from base line improving with IV Hydration Hold Lasix Code(s): N18.3 - CHRONIC KIDNEY DISEASE, STAGE 3 (MODERATE) (9) Acute kidney failure Assessment/Plan: Base line CKD 3 admitted with elevated BUN/Cret improvig on Hydration Hold Lasix Code(s): N17.9 - ACUTE KIDNEY FAILURE, UNSPECIFIED (10) Cough Assessment/Plan: CXR normal cont cough syrup on IV Ceftriaxone Code(s): R05 - COUGH
[2018-01-02] MEDS: guaiFENesin 200 MG/10 ML 10 ML UNIT-DOSE CUPS PO PRN (16:00)
[2018-01-02] MEDS: ATORVASTATIN CA 20 MG TABLET (FP) PO SCH (21:13)
[2018-01-02] MEDS: DONEPEZIL HCL 10 MG TABLET (FP) PO SCH (21:15)
[2018-01-02] MEDS: SODIUM CHLORIDE 1,000 ML IV SCH (21:51)
[2018-01-03] MEDS: guaiFENesin 200 MG/10 ML 10 ML UNIT-DOSE CUPS PO PRN ×2 (00:28→05:59)
[2018-01-03 07:45] LABS: BASO % 0.7 % (0-2.0); EOS % 4.8 % (0-4.5); HEMOGLOBIN 12.6 GM/dL (10.7-15.3); LYMPH % 18.2 % (8-40); MCH 27.9 pg (25.7-33.7); MCHC 32.4 g/dl (32.0-36.0); MEAN CELL VOLUME 85.9 fl (80-96); MEAN PLT VOLUME 8.6 fl (7.5-11.1); MONO % 7.1 % (3.8-10.2); NEUT % 69.2 % (42.8-82.8); PLATELET COUNT 266 K/MM3 (134-434); RBC 4.54 M/mm3 (3.60-5.2); RDW 15.3 % (11.6-15.6); WHITE BLOOD COUNT 7.7 K/mm3 (4.0-10.0)
[2018-01-03 08:15] LABS: ANION GAP 9 MMOL/L (8-16); BLOOD UREA NITROGEN 16 mg/dL (7-18); CALCIUM 8.8 mg/dL (8.5-10.1); CHLORIDE 111 mmol/L (98-107); CO2 25 mmol/L (21-32); CREATININE 0.9 mg/dL (0.55-1.3); GLUCOSE,RANDOM 87 mg/dL (74-106); POTASSIUM 4.4 mmol/L (3.5-5.1); SODIUM 145 mmol/L (136-145)
[2018-01-03] MEDS ORDERED: DEXTROSE 5%-WATER - 50 ML IVPB ONE (09:12)
[2018-01-03] MEDS ORDERED: cefTRIAXone SODIUM 1 GM VIAL ONE (09:12)
[2018-01-03 09:26] VITALS: TEMP 98.2
[2018-01-03] MEDS: CEFTRIAXONE 1 GM in DEXTROSE 5%-WATER - 50 ML IVPB SCH (09:26)
[2018-01-03] MEDS: NYSTATIN 100000 UNIT/GM TOPICAL OINTMENT 15 GM TUBE TP SCH (09:27)
[2018-01-03] MEDS: ASPIRIN 81 MG CHEWABLE TABLETS PO SCH (09:27)
[2018-01-03] MEDS: amLODIPine BESYLATE 5 MG TABLET (FP) PO SCH (09:27)
--- NOTE | 2018-01-03 12:59 | DS ---
Physical Examination Vital Signs: Vital Signs Temperature 36.8 C 01/03/18 09:25 Pulse Rate 61 01/03/18 09:25 Respiratory Rate 18 01/03/18 09:25 Blood Pressure 127/73 01/03/18 09:25 O2 Sat by Pulse Oximetry (%) 92 L 01/03/18 09:00 Constitutional: Yes: No Distress, Calm, Obese Cardiovascular: Yes: Regular Rate and Rhythm. No: Gallop, Murmur, Rub Respiratory: Yes: Regular, CTA Bilaterally. No: Rales, Rhonchi, Wheezes Gastrointestinal: Yes: Normal Bowel Sounds, Soft. No: Distention, Tenderness Musculoskeletal: Yes: Muscle Weakness Edema: No Labs: CBC, BMP 01/03/18 06:25 01/03/18 06:25 Discharge Summary Reason For Visit: URINARY TRACT INFECTION.ELEVATED TROPONIN I LEVEL Current Active Problems Abdominal pain (Acute) Acute kidney failure (Acute) CKD (chronic kidney disease) stage 3, GFR 30-59 ml/min (Acute) Cough (Acute) Dementia (Acute) Dyslipidemia (Acute) HTN (hypertension) (Acute) Near syncope (Acute) Troponin I above reference range (Acute) UTI (urinary tract infection) (Acute) Hospital Course: (1) Near syncope Code(s): R55 - SYNCOPE AND COLLAPSE (2) Troponin I above reference range Code(s): R74.8 - ABNORMAL LEVELS OF OTHER SERUM ENZYMES (3) Abdominal pain Code(s): R10.9 - UNSPECIFIED ABDOMINAL PAIN Qualifiers: Abdominal location: generalized Qualified Code(s): R10.84 - Generalized abdominal pain (4) UTI (urinary tract infection) Qualifiers: Urinary tract infection type: acute cystitis Hematuria presence: without hematuria Qualified Code(s): N30.00 - Acute cystitis without hematuria (5) HTN (hypertension) Code(s): I10 - ESSENTIAL (PRIMARY) HYPERTENSION (6) Dyslipidemia Code(s): E78.5 - HYPERLIPIDEMIA, UNSPECIFIED (7) Dementia Code(s): F03.90 - UNSPECIFIED DEMENTIA WITHOUT BEHAVIORAL DISTURBANCE (8) CKD (chronic kidney disease) stage 3, GFR 30-59 ml/min Code(s): N18.3 - CHRONIC KIDNEY DISEASE, STAGE 3 (MODERATE) (9) Acute kidney failure Code(s): N17.9 - ACUTE KIDNEY FAILURE, UNSPECIFIED (10) Cough Code(s): R05 - COUGH Ms Gayle is an 82 year old female who came in with near syncope. She was admitted to telemetry under observation. She was seen by cardiology and ECHO was performed. She was seen by PT and ambulated. Her lasix was held and she was hydrated. Symptoms did not occur while here. Her lasix will be stopped on discharge. She was found to have a klebsiella UTI, she was treated with rocephin and will finish a course of keflex. She is safe for discharge to [facility]. 31 minutes spent in preparation of this discharge Condition: Stable - Instructions Diet, Activity, Other Instructions: resume previous diet and activity Referrals: Tomi Madden MD [Staff Physician] - Duy Gerber MD [Primary Care Provider] - 1 Week Disposition: HOME - Home Medications Comprehensive Discharge Medication List: Ambulatory Orders Donepezil HCl [Aricept -] 10 mg PO HS #0 tablet 08/26/12 Amlodipine Besylate 5 mg PO DAILY 12/31/17 Aspirin 81 mg PO DAILY 12/31/17 Atorvastatin Ca [Lipitor] 10 mg PO DAILY 12/31/17 Cholecalciferol (Vitamin D3) [Vitamin D3] 1,000 unit PO DAILY 12/31/17 Ferrous Sulfate 325 mg PO DAILY 12/31/17 Guaifenesin [Robafen] 100 mg PO Q4H 12/31/17 Mirabegron [Myrbetriq] 25 mg PO DAILY 12/31/17 Vortioxetine Hydrobromide [Trintellix] 10 mg PO DAILY 12/31/17 Guaifenesin [Robitussin -] 10 ml PO Q6H PRN cup 01/03/18
--- NOTE | 2018-01-03 14:16 | ECHO ---
Name: CHIO PRIEST Exam:Adult Echocardiogram Study Date: 01/03/2018 09:46 AM Age: 82 yrs Reason For Study: SYNCOPE Height: 65 in Weight: 210 lb BSA: 2.0 m2 MMode/2D Measurements & Calculations IVSd: 1.0 cm Ao root diam: 2.6 cm LVIDd: 3.0 cm LVIDs: 2.2 cm LVPWd: 1.9 cm EDV(Teich): 35.9 ml LVOT diam: 1.6 cm ESV(Teich): 17.1 ml RV S Valdo: 14.0 cm/sec Doppler Measurements & Calculations Med Peak E' Valdo: 9.7 cm/sec Lat Peak E' Valdo: 8.7 cm/sec Procedure A complete two-dimensional transthoracic echocardiogram was performed (2D, M-mode, Doppler and color flow Doppler). Technically severely imited study. Left Ventricle The left ventricle is normal in size. Regional wall motion abnormality could not be accurately assess ed due to poor acoustic window. Right Ventricle The right ventricle is not well visualized. Atria The left atrium is not well visualized. Right atrium not well visualized. Mitral Valve The mitral valve is normal in structure and function. There is no mitral regurgitation noted. Tricuspid Valve The tricuspid valve is not well visualized. Aortic Valve There is mild aortic sclerosis.;. No aortic regurgitation is present. Pulmonic Valve The pulmonic valve is not well visualized. Trace pulmonic valvular regurgitation. Great Vessels The aortic root is normal size. Pericardium/Pleura There is no pericardial effusion. Interpretation Summary Technically severely imited study The left ventricle is normal in size. Regional wall motion abnormality could not be accurately assessed due to poor acoustic window The right ventricle is not well visualized. There is mild aortic sclerosis.; Trace pulmonic valvular regurgitation. There is no pericardial effusion. Previous study is not available for comparison Damion Le MD 01/03/2018 02:15 PM
[2018-01-03 14:37] VITALS: BP 103/62; PULSE 73
== END 2018-01-03 16:56 ==
LOC: JER 15:56 → JERBED 20:48 → J4S 01-01 19:13
PROVIDERS: ADMIT Internal Medicine; ATTEND Internal Medicine
PROC: 3E03329 Introduction of Other Anti-infective into Peripheral Vein, Percutaneous Approach (ICD-10-PCS; principal; 2017-12-31)
PROC: 3E033NZ Introduction of Analgesics, Hypnotics, Sedatives into Peripheral Vein, Percutaneous Approach (ICD-10-PCS; 2017-12-31)
PROC: 3E0337Z Introduction of Electrolytic and Water Balance Substance into Peripheral Vein, Percutaneous Approach (ICD-10-PCS; 2017-12-31)
PROC: 3E033GC Introduction of Other Therapeutic Substance into Peripheral Vein, Percutaneous Approach (ICD-10-PCS; 2017-12-31)
DX: R55 Syncope and collapse (principal); R77.8 Other specified abnormalities of plasma proteins; N30.00 Acute cystitis without hematuria; I12.9 Hypertensive chronic kidney disease with stage 1 through stage 4 chronic kidney disease, or unspecified chronic kidney disease; N18.3 Chronic kidney disease, stage 3 (moderate); N17.9 Acute kidney failure, unspecified; E78.5 Hyperlipidemia, unspecified; F03.90 Unspecified dementia, unspecified severity, without behavioral disturbance, psychotic disturbance, mood disturbance, and anxiety; R05 Cough; R10.9 Unspecified abdominal pain; Z86.73 Personal history of transient ischemic attack (TIA), and cerebral infarction without residual deficits; Z87.440 Personal history of urinary (tract) infections
CPT/HCPCS: 36415; 71045-TC-FY; 74177-TC; 80048; 80053; 80061; 81003; 81015; 82550; 83605; 83721; 83735; 84100; 84443; 84484; 85025; 87086; 87186; 93005; 93010; 93306-TC; 96365; 96375; 96376; 97116-GP; 97161-GP; 99284-25; G0378; J0131; J7030

== ENCOUNTER 2018-11-22 15:02 | Emergency (ER) | payer OTHER | END 2018-11-22 19:45 | disposition home or self-care (01) | LOC: JER 15:02 ==

== ENCOUNTER 2020-07-12 17:01 | Emergency (ER) | payer OTHER ==
[2020-07-12 18:04] VITALS: BMI 31.6
[2020-07-12 19:01] VITALS: BP 113/69; PULSE 63; TEMP 98.4
== END 2020-07-13 00:11 ==
LOC: JER 17:01
DX: Z04.3 Encounter for examination and observation following other accident (principal)
CPT/HCPCS: 70450-TC; 71045-TC-FY; 72125-TC; 72170-TC-FY; 93005; 93010; 99284-25

== ENCOUNTER 2021-01-03 06:38 | Inpatient (IN) | payer OTHER ==
[2021-01-03 06:57] VITALS: BMI 32.5
[2021-01-03 08:03] LABS: HEMATOCRIT 40.3 % (32.4-45.2); HEMOGLOBIN 13.3 GM/dL (10.7-15.3); MCH 27.7 pg (25.7-33.7); MEAN CELL VOLUME 83.8 fl (80-96); MEAN PLT VOLUME 9.5 fl (7.5-11.1); RBC 4.81 M/mm3 (3.60-5.2); RDW 15.1 % (11.6-15.6); WHITE BLOOD COUNT 13.9 K/mm3 (4.0-10.0)
[2021-01-03] MEDS ORDERED: ACETAMINOPHEN 1000 MG/100 ML VIAL IVPB ONE (08:14)
[2021-01-03 08:34] LABS: URINE APPEARANCE CLEAR; URINE BILIRUBIN NEGATIVE (NEGATIVE); URINE COLOR YELLOW; URINE GLUCOSE (UA) NEGATIVE (NEGATIVE); URINE KETONE NEGATIVE (NEGATIVE)
[2021-01-03 08:34] LABS: ALBUMIN 3.3 g/dl (3.4-5.0); BILIRUBIN,TOTAL 0.6 mg/dL (0.2-1); BLOOD UREA NITROGEN 21.9 mg/dL (7-18); CALCIUM 9.2 mg/dL (8.5-10.1); CREATININE 1.3 mg/dL (0.55-1.3); MAGNESIUM 1.9 mg/dL (1.8-2.4); N-TERMINAL BNP 508.6 pg/ml (5-450); PHOSPHOROUS 3.2 mg/dL (2.5-4.9); TOT PROT 6.7 g/dl (6.4-8.2)
[2021-01-03 08:35] LABS: PH,URINE 6.5 (5.0-8.0); URINE LEUK ESTERASE 2+ (NEGATIVE); URINE NITRITE POSITIVE (NEGATIVE); URINE PROTEIN NEGATIVE (NEGATIVE)
[2021-01-03] MEDS ORDERED: CEFTRIAXONE 1 GM in DEXTROSE 5%-WATER - 50 ML IVPB ONE (08:44)
[2021-01-03] MEDS ORDERED: ASPIRIN 81 MG CHEWABLE TABLETS PO ONE (08:48)
[2021-01-03 09:07] LABS: EPI CELLS RARE /HPF; URINE RBC 0-2 /hpf (0-4)
[2021-01-03] MEDS ORDERED: ACETAMINOPHEN 325 MG TABLET (FP) PO ONE (09:07)
[2021-01-03 09:08] LABS: URINE BACTERIA MANY /hpf (NEGATIVE)
[2021-01-03] MEDS ORDERED: ASPIRIN 81 MG CHEWABLE TABLETS ONE (09:21)
[2021-01-03] MEDS ORDERED: CEFTRIAXONE 1 GM/50 ML BAG ONE (09:22)
[2021-01-03] MEDS ORDERED: ACETAMINOPHEN INJECTION 100 ML IVPB ONE (09:22)
[2021-01-03 10:41] LABS: INR 1.11 (0.83-1.09)
[2021-01-03 10:43] LABS: ACTIVATED PTT 30.3 SECONDS (25.2-36.5)
[2021-01-03 10:48] LABS: ANISOCYTOSIS 1+; MACROCYTOSIS 0; OVALOCYTE 1+; PLATELET ESTIMATE NORMAL
[2021-01-03 10:57] LABS: PLATELET COUNT 264 10^3/uL (134-434)
[2021-01-03 11:02] LABS: LACTIC ACID 2.4 mmol/L (0.4-2.0)
[2021-01-03] MEDS ORDERED: FUROSEMIDE 40 MG TABLET (FP) PO ONE (16:18)
[2021-01-03] MEDS ORDERED: PANTOPRAZOLE 40 MG TABLET PO ONE (16:19)
[2021-01-03] MEDS ORDERED: CEFEPIME HCL/D5W 2 GM/50 ML BAG IVPB ONE (16:20)
[2021-01-03] MEDS ORDERED: SODIUM CHLORIDE 0.9% 500 ML INFUS.BAG IV ONE (16:28)
[2021-01-03] MEDS ORDERED: VANCOMYCIN 1 GM in D5W (PRE-DOCKED) 1,000 MG/250 ML IVPB SCH ×2 (16:30→16:45)
[2021-01-03] MEDS ORDERED: CEFEPIME 2 GM/100 ML BAG IVPB ONE (16:30)
[2021-01-03] MEDS ORDERED: CEFEPIME 2 GM in DEXTROSE 5%-WATER 2 GM/100 ML BAG IVPB SCH ×2 (16:32→18:31)
[2021-01-03] MEDS ORDERED: MEMANTINE HCL 10 MG TABLET (FP) PO ONE (17:00)
[2021-01-03] MEDS ORDERED: VANCOMYCIN 1 GRAM (PRE-DOCKED) 1,000 MG/250 ML BAG IVPB ONE (17:32)
[2021-01-03 17:55] LABS: ARTERIAL BLD GAS O2 SATURATION 89.8 % (95-98); ARTERIAL BLOOD GAS BASE EXCESS 1.2 mmol/L (-2-2); ARTERIAL BLOOD GAS PO2 52.1 mmHg (80-100); ARTERIAL BLOOD GAS pH 7.488 (7.350-7.450)
[2021-01-03 17:56] LABS: ALLENS TEST POSITIVE
[2021-01-03] MEDS ORDERED: CEFEPIME HCL/D5W 2 GM/50 ML BAG IVPB SCH (22:00)
[2021-01-03 23:51] LABS: CALCIUM 9.5 mg/dL (8.5-10.1)
[2021-01-03 23:52] LABS: ALBUMIN 3.3 g/dl (3.4-5.0); BLOOD UREA NITROGEN 20.3 mg/dL (7-18)
[2021-01-03] MEDS ORDERED: SENNOSIDES 8.6MG TABLET (FP) PO ONE (23:54)
[2021-01-03] MEDS ORDERED: HEPARIN NA (PORCINE) 5,000 UNITS/ML 1ML VIAL ONE (23:54)
[2021-01-03 23:55] LABS: CREATININE 1.1 mg/dL (0.55-1.3)
[2021-01-03 23:57] LABS: BILIRUBIN,TOTAL 0.5 mg/dL (0.2-1); TOT PROT 6.6 g/dl (6.4-8.2)
[2021-01-04] MEDS: SENNOSIDES 8.6MG TABLET (FP) PO SCH ×3 (00:01→21:00)
[2021-01-04] MEDS: HEPARIN NA (PORCINE) 5,000 UNITS/ML 1ML VIAL SQ SCH ×4 (00:01→21:00)
[2021-01-04] MEDS: CEFEPIME 2 GM in DEXTROSE 5%-WATER 2 GM/100 ML BAG IVPB SCH ×2 (06:24→17:51)
[2021-01-04 08:34] LABS: BASO % 0.8 % (0-2.0); EOS % 0.2 % (0-4.5); HEMATOCRIT 38.6 % (32.4-45.2); HEMOGLOBIN 13.1 GM/dL (10.7-15.3); LYMPH % 9.5 % (8-40); MCH 28.5 pg (25.7-33.7); MCHC 33.9 g/dl (32.0-36.0); MEAN PLT VOLUME 8.4 fl (7.5-11.1); MONO % 9.8 % (3.8-10.2); NEUT % 79.7 % (42.8-82.8); PLATELET COUNT 198 10^3/uL (134-434); RBC 4.59 M/mm3 (3.60-5.2); RDW 15.3 % (11.6-15.6); WHITE BLOOD COUNT 6.4 K/mm3 (4.0-10.0)
[2021-01-04] MEDS: ASPIRIN COATED 81 MG TABLET.EC PO SCH (10:41)
[2021-01-04] MEDS ORDERED: cefTRIAXone SODIUM 1 GM VIAL ONE (20:28)
[2021-01-04] MEDS ORDERED: DEXTROSE 5%-WATER - 50 ML IVPB ONE (20:28)
[2021-01-04] MEDS: DONEPEZIL HCL 10 MG TABLET (FP) PO SCH (21:00)
[2021-01-04] MEDS: CEFTRIAXONE 1 GM in DEXTROSE 5%-WATER - 50 ML IVPB SCH (21:00)
[2021-01-05] MEDS: HEPARIN NA (PORCINE) 5,000 UNITS/ML 1ML VIAL SQ SCH ×3 (06:37→21:17)
[2021-01-05] MEDS ORDERED: DEXTROSE 5%-WATER - 50 ML IVPB ONE (09:09)
[2021-01-05] MEDS ORDERED: cefTRIAXone SODIUM 1 GM VIAL ONE (09:09)
[2021-01-05] MEDS: ASPIRIN COATED 81 MG TABLET.EC PO SCH (10:55)
[2021-01-05] MEDS: SENNOSIDES 8.6MG TABLET (FP) PO SCH ×2 (10:55→21:17)
[2021-01-05] MEDS: CEFTRIAXONE 1 GM in DEXTROSE 5%-WATER - 50 ML IVPB SCH (10:56)
[2021-01-05] MEDS: DONEPEZIL HCL 10 MG TABLET (FP) PO SCH (21:17)
[2021-01-05] MEDS: MEMANTINE HCL 10 MG TABLET (FP) PO SCH (21:17)
[2021-01-06] MEDS: HEPARIN NA (PORCINE) 5,000 UNITS/ML 1ML VIAL SQ SCH ×2 (05:38→13:12)
[2021-01-06 08:36] LABS: HEMATOCRIT 38.4 % (32.4-45.2); HEMOGLOBIN 12.6 GM/dL (10.7-15.3); MCH 28.1 pg (25.7-33.7); MCHC 32.7 g/dl (32.0-36.0); MEAN CELL VOLUME 85.9 fl (80-96); MEAN PLT VOLUME 9.4 fl (7.5-11.1); PLATELET COUNT 221 10^3/uL (134-434); RBC 4.48 M/mm3 (3.60-5.2); RDW 15.4 % (11.6-15.6); WHITE BLOOD COUNT 6.1 K/mm3 (4.0-10.0)
[2021-01-06 08:59] LABS: ALBUMIN 3.1 g/dl (3.4-5.0); BLOOD UREA NITROGEN 25.9 mg/dL (7-18); CALCIUM 9.8 mg/dL (8.5-10.1); MAGNESIUM 2.4 mg/dL (1.8-2.4)
[2021-01-06 09:02] LABS: CREATININE 1.1 mg/dL (0.55-1.3)
[2021-01-06 09:04] LABS: BILIRUBIN,TOTAL 0.3 mg/dL (0.2-1); TOT PROT 6.4 g/dl (6.4-8.2)
[2021-01-06] MEDS: SENNOSIDES 8.6MG TABLET (FP) PO SCH (09:28)
[2021-01-06] MEDS ORDERED: cefTRIAXone SODIUM 1 GM VIAL ONE (09:40)
[2021-01-06] MEDS ORDERED: DEXTROSE 5%-WATER - 50 ML IVPB ONE (09:40)
[2021-01-06] MEDS: ASPIRIN COATED 81 MG TABLET.EC PO SCH (09:48)
[2021-01-06] MEDS: MEMANTINE HCL 10 MG TABLET (FP) PO SCH (09:48)
[2021-01-06] MEDS: CEFTRIAXONE 1 GM in DEXTROSE 5%-WATER - 50 ML IVPB SCH (09:48)
[2021-01-06 11:31] LABS: ANISOCYTOSIS 0; MACROCYTOSIS 0; PLATELET ESTIMATE NORMAL
[2021-01-06 15:30] VITALS: BP 113/61; PULSE 73; TEMP 98.1
== END 2021-01-06 17:52 | DRG 872 ==
LOC: JER 06:38 → JERBED 09:01 → J4W 01-04 03:43
PROVIDERS: ATTEND Student in an Organized Health Care Education/Training Program
DX: A41.51 Sepsis due to Escherichia coli [E. coli] (principal); N39.0 Urinary tract infection, site not specified; E87.2 Acidosis; N17.9 Acute kidney failure, unspecified; R06.02 Shortness of breath; G30.9 Alzheimer's disease, unspecified; F02.80 Dementia in other diseases classified elsewhere, unspecified severity, without behavioral disturbance, psychotic disturbance, mood disturbance, and anxiety; I10 Essential (primary) hypertension; E78.5 Hyperlipidemia, unspecified; R50.9 Fever, unspecified; D72.829 Elevated white blood cell count, unspecified; Z86.73 Personal history of transient ischemic attack (TIA), and cerebral infarction without residual deficits; D64.9 Anemia, unspecified; R09.02 Hypoxemia
CPT/HCPCS: 36415; 36600; 71045-TC-FY; 71275-TC; 80053; 81003; 82803; 83605; 83735; 83880; 84100; 84484; 85025; 85610; 85730; 87040; 87086; 87186; 87804; 93005; 93010; 94761; 97116-GP; 97162-GP; 99285-25; C9803; J0131; J1644; Q9967; U0003; U0005

== ENCOUNTER 2022-07-01 07:41 | Inpatient (IN) | payer OTHER ==
[2022-07-01] MEDS ORDERED: LACTATED RINGERS SOLUTION 1,000 ML/1,000 ML INFUS.BAG IV STA (08:31)
[2022-07-01 09:29] LABS: HEMOGLOBIN 12.9 GM/dL (10.7-15.3); INR 1.18 (0.83-1.09); LYMPH % 8.6 % (8-40); MCH 27.6 pg (25.7-33.7); MEAN PLT VOLUME 9.3 fl (7.5-11.1); MONO % 10.5 % (3.8-10.2); NEUT % 76.9 % (42.8-82.8); PLATELET COUNT 251 10^3/uL (134-434); PROTHROMBIN TIME (PATIENT) 13.7 SEC (9.7-13.0); RBC 4.69 M/mm3 (3.60-5.2)
[2022-07-01 09:30] LABS: VENOUS BASE EXCESS -2.3 mmol/L (-2-2); VENOUS O2 SATURATION 87.1 % (70-80); VENOUS PCO2 41.4 mmHg (38-52); VENOUS PH 7.363 (7.310-7.410)
[2022-07-01 09:31] LABS: EPI CELLS 6 /uL (0-25.1); HYALINE CASTS 0 /uL (0-3.1); URINE APPEARANCE CLEAR; URINE BACTERIA >9,000 /uL (0-1359); URINE BILIRUBIN NEGATIVE (NEGATIVE); URINE COLOR YELLOW; URINE GLUCOSE (UA) NEGATIVE (NEGATIVE); URINE KETONE NEGATIVE (NEGATIVE); URINE LEUK ESTERASE TRACE (NEGATIVE); URINE NITRITE POSITIVE (NEGATIVE); URINE PROTEIN NEGATIVE (NEGATIVE); URINE RBC 59 /uL (0-23.9); URINE WBC 77 /uL (0-25.8)
[2022-07-01 09:33] LABS: ACTIVATED PTT 32.2 SECONDS (25.2-36.5)
[2022-07-01 09:42] LABS: CHLORIDE 109 mmol/L (98-107); SODIUM 140 mmol/L (136-145)
[2022-07-01 09:44] LABS: ALBUMIN 3.6 g/dl (3.4-5.0); ANION GAP 4 MMOL/L (8-16); BLOOD UREA NITROGEN 18.3 mg/dL (7-18); CALCIUM 9.2 mg/dL (8.5-10.1); CO2 27 mmol/L (21-32); GLUCOSE,RANDOM 108 mg/dL (74-106)
[2022-07-01 09:47] LABS: CREATININE 1.1 mg/dL (0.55-1.3); SGOT/AST 19 U/L (15-37); SGPT/ALT 20 U/L (13-61)
[2022-07-01] MEDS ORDERED: CEFTRIAXONE 1,000 MG in DEXTROSE 5%-WATER - 50 ML IVPB ONE (09:48)
[2022-07-01 09:49] LABS: BILIRUBIN,TOTAL 0.5 mg/dL (0.2-1); TOT PROT 6.7 g/dl (6.4-8.2)
[2022-07-01 09:50] LABS: ALK PHOS 99 U/L (45-117)
[2022-07-01] MEDS ORDERED: ASPIRIN COATED 81 MG TABLET.EC PO ONE (09:52)
[2022-07-01] MEDS ORDERED: ASPIRIN COATED 81 MG TABLET.EC ONE (10:01)
[2022-07-01] MEDS ORDERED: CEFTRIAXONE 1 GM/50 ML BAG ONE (10:01)
[2022-07-01] MEDS ORDERED: ACETAMINOPHEN 1000 MG/100 ML BAG IVPB ONE (20:45)
[2022-07-01] MEDS: MEMANTINE HCL 10 MG TABLET (FP) PO SCH (21:53)
[2022-07-01] MEDS: DONEPEZIL HCL 10 MG TABLET (FP) PO SCH (21:53)
[2022-07-01] MEDS: SENNOSIDES 8.6MG TABLET (FP) PO SCH (21:53)
[2022-07-02 06:54] LABS: BASO % 1.2 % (0-2.0); EOS % 1.6 % (0-4.5); HEMATOCRIT 37.8 % (32.4-45.2); HEMOGLOBIN 12.6 GM/dL (10.7-15.3); LYMPH % 14.4 % (8-40); MCH 26.9 pg (25.7-33.7); MCHC 33.5 g/dl (32.0-36.0); MEAN CELL VOLUME 80.5 fl (80-96); MEAN PLT VOLUME 8.9 fl (7.5-11.1); MONO % 13.7 % (3.8-10.2); NEUT % 69.1 % (42.8-82.8); PLATELET COUNT 207 10^3/uL (134-434); RBC 4.69 M/mm3 (3.60-5.2); RDW 15.9 % (11.6-15.6); WHITE BLOOD COUNT 6.5 K/mm3 (4.0-10.0)
[2022-07-02 07:17] LABS: CALCIUM 9.6 mg/dL (8.5-10.1)
[2022-07-02 07:18] LABS: ALBUMIN 3.4 g/dl (3.4-5.0); BLOOD UREA NITROGEN 12.7 mg/dL (7-18); MAGNESIUM 1.8 mg/dL (1.8-2.4)
[2022-07-02 07:21] LABS: CREATININE 0.9 mg/dL (0.55-1.3); PHOSPHOROUS 3.1 mg/dL (2.5-4.9)
[2022-07-02 07:22] LABS: BILIRUBIN,TOTAL 0.6 mg/dL (0.2-1); TOT PROT 6.2 g/dl (6.4-8.2)
[2022-07-02] MEDS ORDERED: PATIENT'S OWN MEDICATION (NON-FORMULARY) (Mirabegron [Myrbetriq] 25 MG Tab.Er.24h) PO SCH (10:00)
[2022-07-02] MEDS: ENOXAPARIN NA (PORCINE) 40 MG/0.4 ML DISP.SYRIN SQ SCH (10:10)
[2022-07-02] MEDS: ASPIRIN 81 MG CHEWABLE TABLETS PO SCH (10:10)
[2022-07-02] MEDS: PANTOPRAZOLE 40 MG TABLET PO SCH (10:10)
[2022-07-02] MEDS: SENNOSIDES 8.6MG TABLET (FP) PO SCH ×2 (10:10→21:56)
[2022-07-02] MEDS: MEMANTINE HCL 10 MG TABLET (FP) PO SCH ×2 (10:10→21:56)
[2022-07-02] MEDS: CEFTRIAXONE 1 GM in DEXTROSE 5%-WATER - 50 ML IVPB SCH (10:10)
[2022-07-02] MEDS: D5-1/2NS+10 MEQ KCL - 10 MEQ/1,000 ML INFUS.BAG IV SCH (15:48)
[2022-07-02] MEDS: DONEPEZIL HCL 10 MG TABLET (FP) PO SCH (21:56)
[2022-07-02] MEDS: ATORVASTATIN CA 20 MG TABLET (FP) PO SCH (21:56)
[2022-07-03] MEDS: ASPIRIN 81 MG CHEWABLE TABLETS PO SCH (09:44)
[2022-07-03] MEDS: CEFTRIAXONE 1 GM in DEXTROSE 5%-WATER - 50 ML IVPB SCH (09:45)
[2022-07-03] MEDS: MEMANTINE HCL 10 MG TABLET (FP) PO SCH ×2 (09:45→21:32)
[2022-07-03] MEDS: SENNOSIDES 8.6MG TABLET (FP) PO SCH ×2 (09:45→21:32)
[2022-07-03] MEDS: PANTOPRAZOLE 40 MG TABLET PO SCH (09:45)
[2022-07-03] MEDS: ENOXAPARIN NA (PORCINE) 40 MG/0.4 ML DISP.SYRIN SQ SCH (09:53)
[2022-07-03] MEDS: ATORVASTATIN CA 20 MG TABLET (FP) PO SCH (21:32)
[2022-07-03] MEDS: DONEPEZIL HCL 10 MG TABLET (FP) PO SCH (21:32)
[2022-07-03] MEDS ORDERED: guaiFENesin 200 MG/10 ML 10 ML UNIT-DOSE CUPS PO ONE (22:14)
[2022-07-03] MEDS: D5-1/2NS+10 MEQ KCL - 10 MEQ/1,000 ML INFUS.BAG IV SCH (23:16)
[2022-07-04] MEDS: ASPIRIN 81 MG CHEWABLE TABLETS PO SCH (09:43)
[2022-07-04] MEDS: D5-1/2NS+10 MEQ KCL - 10 MEQ/1,000 ML INFUS.BAG IV SCH (09:43)
[2022-07-04] MEDS: MEMANTINE HCL 10 MG TABLET (FP) PO SCH ×2 (09:44→22:28)
[2022-07-04] MEDS: PANTOPRAZOLE 40 MG TABLET PO SCH (09:46)
[2022-07-04] MEDS: SENNOSIDES 8.6MG TABLET (FP) PO SCH ×2 (09:46→22:29)
[2022-07-04] MEDS: CEFTRIAXONE 1 GM in DEXTROSE 5%-WATER - 50 ML IVPB SCH (09:46)
[2022-07-04] MEDS: ENOXAPARIN NA (PORCINE) 40 MG/0.4 ML DISP.SYRIN SQ SCH (09:46)
[2022-07-04 16:35] VITALS: BMI 32.9
[2022-07-04] MEDS: DONEPEZIL HCL 10 MG TABLET (FP) PO SCH (22:29)
[2022-07-04] MEDS: ATORVASTATIN CA 20 MG TABLET (FP) PO SCH (22:29)
[2022-07-05] MEDS: D5-1/2NS+10 MEQ KCL - 10 MEQ/1,000 ML INFUS.BAG IV SCH (09:15)
[2022-07-05] MEDS: ENOXAPARIN NA (PORCINE) 40 MG/0.4 ML DISP.SYRIN SQ SCH (09:15)
[2022-07-05] MEDS: ASPIRIN 81 MG CHEWABLE TABLETS PO SCH (09:16)
[2022-07-05] MEDS: MEMANTINE HCL 10 MG TABLET (FP) PO SCH ×2 (09:16→21:45)
[2022-07-05] MEDS: CEFTRIAXONE 1 GM in DEXTROSE 5%-WATER - 50 ML IVPB SCH (09:16)
[2022-07-05] MEDS: SENNOSIDES 8.6MG TABLET (FP) PO SCH ×2 (09:16→21:45)
[2022-07-05] MEDS: PANTOPRAZOLE 40 MG TABLET PO SCH (09:16)
[2022-07-05] MEDS: DONEPEZIL HCL 10 MG TABLET (FP) PO SCH (21:45)
[2022-07-05] MEDS: ATORVASTATIN CA 20 MG TABLET (FP) PO SCH (21:45)
[2022-07-06] MEDS ORDERED: CEPHALEXIN MONOHYDRATE 500 MG CAPSULE (UD) PO SCH (10:00)
[2022-07-06 10:08] LABS: BASO % 0.6 % (0-2.0); EOS % 4.5 % (0-4.5); HEMATOCRIT 39.9 % (32.4-45.2); LYMPH % 14.7 % (8-40); MCH 26.5 pg (25.7-33.7); MCHC 32.5 g/dl (32.0-36.0); MEAN CELL VOLUME 81.6 fl (80-96); MONO % 7.1 % (3.8-10.2); NEUT % 73.1 % (42.8-82.8); PLATELET COUNT 237 10^3/uL (134-434); RBC 4.89 M/mm3 (3.60-5.2); RDW 15.5 % (11.6-15.6); WHITE BLOOD COUNT 7.5 K/mm3 (4.0-10.0)
[2022-07-06 10:38] LABS: BLOOD UREA NITROGEN 18.7 mg/dL (7-18); MAGNESIUM 1.7 mg/dL (1.8-2.4)
[2022-07-06 10:42] LABS: TOT PROT 6.1 g/dl (6.4-8.2)
[2022-07-06 10:43] LABS: BILIRUBIN,TOTAL 0.4 mg/dL (0.2-1)
[2022-07-06] MEDS: ASPIRIN 81 MG CHEWABLE TABLETS PO SCH (11:13)
[2022-07-06] MEDS: PANTOPRAZOLE 40 MG TABLET PO SCH (11:14)
[2022-07-06] MEDS: SENNOSIDES 8.6MG TABLET (FP) PO SCH (11:14)
[2022-07-06] MEDS: MEMANTINE HCL 10 MG TABLET (FP) PO SCH (11:14)
[2022-07-06] MEDS: ENOXAPARIN NA (PORCINE) 40 MG/0.4 ML DISP.SYRIN SQ SCH (11:14)
[2022-07-06 12:37] VITALS: BP 135/71; PULSE 67; RESP 17; TEMP 99
== END 2022-07-06 17:11 | disposition home or self-care (01) | DRG 689 ==
LOC: JER 07:41 → UNDOADMOB 10:40 → INTOOBSV 10:40 → JERBED 10:40 → J4W 13:07 → JERBED 19:09 → J4W 19:09 → OBSVTOIN 07-03 10:55 → J6S 07-03 17:22
PROVIDERS: ADMIT Internal Medicine; ATTEND Nurse Practitioner Acute Care
DX: N39.0 Urinary tract infection, site not specified (principal); G93.41 Metabolic encephalopathy; I24.8 Other forms of acute ischemic heart disease; N17.9 Acute kidney failure, unspecified; I10 Essential (primary) hypertension; E78.5 Hyperlipidemia, unspecified; F03.90 Unspecified dementia, unspecified severity, without behavioral disturbance, psychotic disturbance, mood disturbance, and anxiety; K21.9 Gastro-esophageal reflux disease without esophagitis; R77.8 Other specified abnormalities of plasma proteins; N18.9 Chronic kidney disease, unspecified; I12.9 Hypertensive chronic kidney disease with stage 1 through stage 4 chronic kidney disease, or unspecified chronic kidney disease; Z86.73 Personal history of transient ischemic attack (TIA), and cerebral infarction without residual deficits
CPT/HCPCS: 0241U-QW; 36415; 70450-TC; 71045-TC-FY; 80053; 81003; 82550; 82553; 82803; 82962; 83605; 83735; 84100; 84484; 85025; 85610; 85730; 86850; 86900; 86901; 87040; 87086; 87186; 93005; 93010; 93306-TC; 97116-GP; 97162-GP; 99285-25; G0378

== ENCOUNTER 2022-11-03 10:06 | Emergency (ER) | payer OTHER ==
[2022-11-03 10:36] VITALS: BP 161/70; PULSE 63; RESP 17; TEMP 97.9; BMI 31.6
[2022-11-03] MEDS ORDERED: LIDOCAINE 5% TOPICAL PATCH TP ONE (10:50)
[2022-11-03] MEDS ORDERED: ACETAMINOPHEN 500 MG TABLET (FP) PO ONE (10:50)
== END 2022-11-03 23:12 ==
LOC: JER 10:06
DX: M25.561 Pain in right knee (principal); G89.29 Other chronic pain; M17.9 Osteoarthritis of knee, unspecified; F03.90 Unspecified dementia, unspecified severity, without behavioral disturbance, psychotic disturbance, mood disturbance, and anxiety; M54.50 Low back pain, unspecified; M54.6 Pain in thoracic spine; M54.2 Cervicalgia; E04.1 Nontoxic single thyroid nodule; D35.00 Benign neoplasm of unspecified adrenal gland; W18.39XA Other fall on same level, initial encounter; Y92.129 Unspecified place in nursing home as the place of occurrence of the external cause
CPT/HCPCS: 70450-TC; 71101-TC-RT-FY; 72125-TC; 72128-TC; 72131-TC; 73502-TC-RT-FY; 73562-TC-RT-FY; 99285-25

== ENCOUNTER 2023-08-09 10:02 | Inpatient (IN) | payer OTHER ==
[2023-08-09 10:32] VITALS: BMI 31.6
[2023-08-09] MEDS ORDERED: ACETAMINOPHEN INJECTION 100 ML IVPB ONE (11:23)
[2023-08-09] MEDS: SODIUM CHLORIDE 500 ML IV STA (13:10)
[2023-08-09] MEDS: ACETAMINOPHEN 1000 MG/100 ML BAG IVPB ONE (13:10)
[2023-08-09 13:26] LABS: VENOUS BASE EXCESS 0.5 mmol/L (-2-2); VENOUS O2 SATURATION 43.8 % (70-80); VENOUS PCO2 41.8 mmHg (38-52); VENOUS PH 7.402 (7.310-7.410)
[2023-08-09 13:28] LABS: BASO % 0.4 % (0-2.0); HEMATOCRIT 39.8 % (32.4-45.2); HEMOGLOBIN 13.3 GM/dL (10.7-15.3); LYMPH % 4.8 % (8-40); MCH 27.6 pg (25.7-33.7); MCHC 33.5 g/dl (32.0-36.0); MEAN CELL VOLUME 82.6 fl (80-96); MEAN PLT VOLUME 8.3 fl (7.5-11.1); MONO % 9.4 % (3.8-10.2); NEUT % 85.4 % (42.8-82.8); PLATELET COUNT 213 10^3/uL (134-434); RBC 4.82 M/mm3 (3.60-5.2); RDW 15.8 % (11.6-15.6); WHITE BLOOD COUNT 8.7 K/mm3 (4.0-10.0)
[2023-08-09 13:33] LABS: INR 1.16 (0.83-1.09); PROTHROMBIN TIME (PATIENT) 13.3 SEC (9.7-13.0)
[2023-08-09 13:35] LABS: ACTIVATED PTT 35.4 SECONDS (25.2-36.5)
[2023-08-09 13:58] LABS: CHLORIDE 105 mmol/L (98-107); POTASSIUM 4.1 mmol/L (3.5-5.1); SODIUM 139 mmol/L (136-145)
[2023-08-09 14:00] LABS: ALBUMIN 3.7 g/dl (3.4-5.0); ANION GAP 7 mmol/L (4-13); BLOOD UREA NITROGEN 12.6 mg/dL (7-18); CALCIUM 9.9 mg/dL (8.5-10.1); CO2 28 mmol/L (21-32); GLUCOSE,RANDOM 109 mg/dL (74-106); MAGNESIUM 1.7 mg/dL (1.8-2.4)
[2023-08-09 14:04] LABS: ERYTHROCYTE SEDIMENTATION RATE 53 mm/hr (0-30)
[2023-08-09 14:05] LABS: PHOSPHOROUS 2.7 mg/dL (2.5-4.9); SGOT/AST 18 U/L (15-37); SGPT/ALT 18 U/L (13-61)
[2023-08-09 14:06] LABS: BILIRUBIN,TOTAL 0.6 mg/dL (0.2-1); TOT PROT 6.9 g/dl (6.4-8.2)
[2023-08-09 14:07] LABS: ALK PHOS 102 U/L (45-117)
[2023-08-09] MEDS ORDERED: ASPIRIN 81 MG CHEWABLE TABLETS ONE (17:34)
[2023-08-09] MEDS: ASPIRIN 81 MG CHEWABLE TABLETS PO ONE (17:40)
[2023-08-09] MEDS: REMDESIVIR 200 MG in SODIUM CHLORIDE 250 ML IVPB ONE (17:55)
[2023-08-09 18:14] LABS: EPI CELLS 1 /uL (0-25.1); HYALINE CASTS 1 /uL (0-3.1); PH,URINE 5.5 (5.0-8.0); URINE APPEARANCE CLOUDY; URINE BACTERIA >9,000 /uL (0-1359); URINE BILIRUBIN NEGATIVE (NEGATIVE); URINE COLOR YELLOW; URINE GLUCOSE (UA) NEGATIVE (NEGATIVE); URINE KETONE NEGATIVE (NEGATIVE); URINE LEUK ESTERASE 2+ (NEGATIVE); URINE NITRITE NEGATIVE (NEGATIVE); URINE PROTEIN TRACE (NEGATIVE); URINE RBC 32 /uL (0-23.9); URINE UROBILINOGEN 0.2 mg/dL (0.2-1.0); URINE WBC 475 /uL (0-25.8)
[2023-08-09] MEDS ORDERED: CEFTRIAXONE 1 GM/50 ML BAG ONE (19:27)
[2023-08-09] MEDS: CEFTRIAXONE 1 GM in DEXTROSE 5%-WATER - 50 ML IVPB SCH (19:35)
[2023-08-09] MEDS ORDERED: SENNOSIDES 8.6MG TABLET (FP) PO ONE (22:20)
[2023-08-09] MEDS ORDERED: DONEPEZIL HCL 5 MG TABLET (FP) ONE (22:21)
[2023-08-09] MEDS ORDERED: HEPARIN NA (PORCINE) 5,000 UNITS/ML 1ML VIAL ONE (22:21)
[2023-08-09] MEDS: DONEPEZIL HCL 10 MG TABLET (FP) PO SCH (22:38)
[2023-08-09] MEDS: HEPARIN NA (PORCINE) 5,000 UNITS/ML 1ML VIAL SQ SCH (22:38)
[2023-08-09] MEDS: SENNOSIDES 8.6MG TABLET (FP) PO SCH (22:38)
[2023-08-09] MEDS: MEMANTINE HCL 10 MG TABLET (FP) PO SCH (23:55)
[2023-08-10] MEDS: ACETAMINOPHEN 500 MG TABLET (FP) PO PRN (01:48)
[2023-08-10 09:38] LABS: BASO % 0.5 % (0-2.0); HEMATOCRIT 39.1 % (32.4-45.2); HEMOGLOBIN 12.6 GM/dL (10.7-15.3); LYMPH % 8.2 % (8-40); MCH 27.1 pg (25.7-33.7); MCHC 32.3 g/dl (32.0-36.0); MEAN PLT VOLUME 8.7 fl (7.5-11.1); MONO % 12.5 % (3.8-10.2); NEUT % 78.8 % (42.8-82.8); PLATELET COUNT 196 10^3/uL (134-434); RBC 4.66 M/mm3 (3.60-5.2); RDW 15.9 % (11.6-15.6); WHITE BLOOD COUNT 7.2 K/mm3 (4.0-10.0)
[2023-08-10 09:56] LABS: POTASSIUM 3.8 mmol/L (3.5-5.1)
[2023-08-10 09:58] LABS: CALCIUM 9.3 mg/dL (8.5-10.1)
[2023-08-10 09:59] LABS: BLOOD UREA NITROGEN 15.6 mg/dL (7-18)
[2023-08-10] MEDS ORDERED: PATIENT'S OWN MEDICATION (NON-FORMULARY) (Mirabegron [Myrbetriq] 25 MG Tab.Er.24h) PO SCH (10:00)
[2023-08-10 10:02] LABS: CREATININE 0.9 mg/dL (0.55-1.3)
[2023-08-10] MEDS: ASPIRIN 81 MG CHEWABLE TABLETS PO SCH (10:30)
[2023-08-10] MEDS: PANTOPRAZOLE 40 MG TABLET PO SCH (10:31)
[2023-08-10] MEDS: REMDESIVIR 100 MG in SODIUM CHLORIDE 250 ML IVPB SCH (11:50)
[2023-08-10] MEDS: NYSTATIN 500,000 UNITS/5 ML SUSPENSION PO SCH (12:40)
[2023-08-10] MEDS: DEXAMETHASONE SOD PHOSPHATE 10 MG/1 ML VIAL IVPUSH SCH (13:51)
[2023-08-10] MEDS: ATORVASTATIN CA 20 MG TABLET (FP) PO SCH (22:49)
[2023-08-11 08:50] LABS: BASO % 0.2 % (0-2.0); HEMATOCRIT 37.9 % (32.4-45.2); HEMOGLOBIN 12.6 GM/dL (10.7-15.3); LYMPH % 12.6 % (8-40); MCH 27.5 pg (25.7-33.7); MCHC 33.2 g/dl (32.0-36.0); MEAN CELL VOLUME 82.7 fl (80-96); MEAN PLT VOLUME 8.5 fl (7.5-11.1); MONO % 10.4 % (3.8-10.2); NEUT % 76.8 % (42.8-82.8); PLATELET COUNT 233 10^3/uL (134-434); RBC 4.59 M/mm3 (3.60-5.2); WHITE BLOOD COUNT 5.8 K/mm3 (4.0-10.0)
[2023-08-11 09:07] LABS: POTASSIUM 4.2 mmol/L (3.5-5.1)
[2023-08-11 09:09] LABS: ALBUMIN 3.3 g/dl (3.4-5.0); BLOOD UREA NITROGEN 26.3 mg/dL (7-18); CALCIUM 9.8 mg/dL (8.5-10.1)
[2023-08-11 09:12] LABS: CREATININE 1.1 mg/dL (0.55-1.3)
[2023-08-11 09:14] LABS: BILIRUBIN,TOTAL 0.3 mg/dL (0.2-1); TOT PROT 6.3 g/dl (6.4-8.2)
[2023-08-11 15:07] VITALS: RESP 18
[2023-08-11] MEDS: guaiFENesin 200 MG/10 ML 10 ML UNIT-DOSE CUPS PO PRN (21:31)
[2023-08-13 07:59] LABS: POTASSIUM 4.6 mmol/L (3.5-5.1)
[2023-08-13 08:03] LABS: BLOOD UREA NITROGEN 31.2 mg/dL (7-18); CALCIUM 9.9 mg/dL (8.5-10.1)
[2023-08-13 08:27] LABS: HEMATOCRIT 40.7 % (32.4-45.2); HEMOGLOBIN 13.6 GM/dL (10.7-15.3); MCH 27.7 pg (25.7-33.7); MCHC 33.3 g/dl (32.0-36.0); MEAN CELL VOLUME 83.1 fl (80-96)
[2023-08-13 08:31] LABS: WHITE BLOOD COUNT 10.4 K/mm3 (4.0-10.0)
[2023-08-13 09:20] LABS: ANISOCYTOSIS 0; MACROCYTOSIS 0
[2023-08-13 09:32] LABS: PLATELET ESTIMATE ADEQUATE
[2023-08-13] MEDS: CEPHALEXIN MONOHYDRATE 500 MG CAPSULE (UD) PO SCH (10:48)
[2023-08-16 08:32] VITALS: TEMP 97.9
[2023-08-16 17:09] VITALS: BP 140/81; PULSE 68
== END 2023-08-16 20:03 | DRG 178 ==
LOC: JER 10:02 → JERBED 15:21 → J6S 23:06 → OBSVTOIN 08-10 13:47
PROVIDERS: ADMIT Internal Medicine; ATTEND Internal Medicine
PROC: XW033E5 Introduction of Remdesivir Anti-infective into Peripheral Vein, Percutaneous Approach, New Technology Group 5 (ICD-10-PCS; principal; 2023-08-09)
DX: U07.1 COVID-19 (principal); B37.0 Candidal stomatitis; N39.0 Urinary tract infection, site not specified; I10 Essential (primary) hypertension; E78.5 Hyperlipidemia, unspecified; D33.3 Benign neoplasm of cranial nerves; K21.9 Gastro-esophageal reflux disease without esophagitis; G30.9 Alzheimer's disease, unspecified; F02.80 Dementia in other diseases classified elsewhere, unspecified severity, without behavioral disturbance, psychotic disturbance, mood disturbance, and anxiety; B96.20 Unspecified Escherichia coli [E. coli] as the cause of diseases classified elsewhere
CPT/HCPCS: 0241U-QW; 36415; 71045-TC-FY; 80048; 80053; 81003; 82550; 82803; 83605; 83735; 84100; 84484; 85025; 85610; 85651; 85730; 86140; 86850; 86900; 86901; 87040; 87086; 87186; 93005; 93010; 97116-GP; 97161-GP; 99285-25; G0378; J0131; J0248; J1100; J1644

== ENCOUNTER 2023-09-08 10:30 | Inpatient (IN) | payer OTHER ==
[2023-09-08] MEDS ORDERED: ACETAMINOPHEN INJECTION 100 ML IVPB ONE (11:58)
[2023-09-08 12:57] LABS: VENOUS BASE EXCESS -1.5 mmol/L (-2-2); VENOUS O2 SATURATION 54.6 % (70-80); VENOUS PH 7.364 (7.310-7.410)
[2023-09-08] MEDS: ACETAMINOPHEN 1000 MG/100 ML BAG IVPB ONE (13:00)
[2023-09-08 13:05] LABS: INR 1.19 (0.83-1.09); PROTHROMBIN TIME (PATIENT) 13.4 SEC (9.7-13.0)
[2023-09-08 13:08] LABS: ACTIVATED PTT 31.1 SECONDS (25.2-36.5); BASO % 0.5 % (0-2.0); EOS % 3.5 % (0-4.5); HEMOGLOBIN 12.5 GM/dL (10.7-15.3); LYMPH % 13.3 % (8-40); MCH 27.2 pg (25.7-33.7); MCHC 32.1 g/dl (32.0-36.0); MEAN CELL VOLUME 84.8 fl (80-96); MEAN PLT VOLUME 8.4 fl (7.5-11.1); MONO % 12.4 % (3.8-10.2); NEUT % 70.3 % (42.8-82.8); PLATELET COUNT 327 10^3/uL (134-434); RDW 15.8 % (11.6-15.6); WHITE BLOOD COUNT 9.4 K/mm3 (4.0-10.0)
[2023-09-08 13:18] LABS: POTASSIUM 4.5 mmol/L (3.5-5.1)
[2023-09-08 13:19] LABS: ALBUMIN 3.2 g/dl (3.4-5.0)
[2023-09-08 13:20] LABS: BLOOD UREA NITROGEN 11.1 mg/dL (7-18); CALCIUM 10.2 mg/dL (8.5-10.1)
[2023-09-08 13:23] LABS: CREATININE 0.9 mg/dL (0.55-1.3)
[2023-09-08 13:25] LABS: BILIRUBIN,TOTAL 0.7 mg/dL (0.2-1); TOT PROT 6.5 g/dl (6.4-8.2)
[2023-09-08 17:44] LABS: VENOUS BASE EXCESS 3.4 mmol/L (-2-2); VENOUS O2 SATURATION 44.7 % (70-80); VENOUS PCO2 45.1 mmHg (38-52); VENOUS PH 7.419 (7.310-7.410)
[2023-09-08 17:51] LABS: EPI CELLS 4 /uL (0-25.1); HYALINE CASTS 5 /uL (0-3.1); PH,URINE 5.5 (5.0-8.0); URINE APPEARANCE CLOUDY; URINE BACTERIA >9,000 /uL (0-1359); URINE BILIRUBIN NEGATIVE (NEGATIVE); URINE COLOR DK YELLOW; URINE GLUCOSE (UA) NEGATIVE (NEGATIVE); URINE KETONE TRACE (NEGATIVE); URINE LEUK ESTERASE 2+ (NEGATIVE); URINE NITRITE POSITIVE (NEGATIVE); URINE PROTEIN 1+ (NEGATIVE); URINE RBC 16 /uL (0-23.9); URINE WBC 432 /uL (0-25.8)
[2023-09-08] MEDS ORDERED: CEFTRIAXONE 1 GM/50 ML BAG ONE (20:45)
[2023-09-08] MEDS: CEFTRIAXONE 1,000 MG in DEXTROSE 5%-WATER - 50 ML IVPB ONE (20:58)
[2023-09-08] MEDS ORDERED: ERYTHROMYCIN 0.5% OPHTHALMIC OINTMENT 3.5 GM TUBE ONE (23:53)
[2023-09-09] MEDS: ERYTHROMYCIN 0.5% OPHTHALMIC OINTMENT 3.5 GM TUBE OU SCH (00:01)
[2023-09-09] MEDS ORDERED: PANTOPRAZOLE 40 MG TABLET PO ONE (06:13)
[2023-09-09] MEDS: PANTOPRAZOLE 40 MG TABLET PO SCH (06:52)
[2023-09-09 08:26] LABS: HEMATOCRIT 38.9 % (32.4-45.2); HEMOGLOBIN 12.5 GM/dL (10.7-15.3); MCH 26.9 pg (25.7-33.7); MCHC 32.1 g/dl (32.0-36.0); MEAN CELL VOLUME 83.9 fl (80-96); MEAN PLT VOLUME 8.1 fl (7.5-11.1); PLATELET COUNT 323 10^3/uL (134-434); RBC 4.63 M/mm3 (3.60-5.2); RDW 15.6 % (11.6-15.6); WHITE BLOOD COUNT 10.8 K/mm3 (4.0-10.0)
[2023-09-09 09:08] LABS: ANISOCYTOSIS 0; MACROCYTOSIS 0
[2023-09-09 09:58] LABS: POTASSIUM 4.2 mmol/L (3.5-5.1)
[2023-09-09 09:59] LABS: CALCIUM 9.6 mg/dL (8.5-10.1)
[2023-09-09 10:00] LABS: BLOOD UREA NITROGEN 10.1 mg/dL (7-18); MAGNESIUM 1.7 mg/dL (1.8-2.4)
[2023-09-09] MEDS ORDERED: ERYTHROMYCIN 0.5% OPHTHALMIC OINTMENT 3.5 GM TUBE OU SCH (10:00)
[2023-09-09 10:03] LABS: CREATININE 0.9 mg/dL (0.55-1.3); PHOSPHOROUS 2.8 mg/dL (2.5-4.9)
[2023-09-09] MEDS ORDERED: METOPROLOL TARTRATE 25 MG TABLET (FP) ONE (11:07)
[2023-09-09] MEDS ORDERED: ERYTHROMYCIN 0.5% OPHTHALMIC OINTMENT 3.5 GM TUBE ONE (11:07)
[2023-09-09] MEDS ORDERED: ASPIRIN 81 MG CHEWABLE TABLETS ONE (11:08)
[2023-09-09] MEDS: MEMANTINE HCL 10 MG TABLET (FP) PO SCH ×2 (11:09→22:05)
[2023-09-09] MEDS: ASPIRIN 81 MG CHEWABLE TABLETS PO SCH (11:09)
[2023-09-09] MEDS: SENNOSIDES 8.6MG TABLET (FP) PO SCH ×2 (11:10→22:04)
[2023-09-09] MEDS: METOPROLOL TARTRATE 25 MG TABLET (FP) PO SCH ×2 (11:11→22:05)
[2023-09-09] MEDS ORDERED: CEFTRIAXONE 1 GM/50 ML BAG ONE (11:12)
[2023-09-09] MEDS: CEFTRIAXONE 1 GM in DEXTROSE 5%-WATER - 50 ML IVPB SCH (11:25)
[2023-09-09] MEDS: PATIENT'S OWN MEDICATION (NON-FORMULARY) (Mirabegron [Myrbetriq] 25 MG Tab.Er.24h) PO SCH (18:19)
[2023-09-09 19:36] VITALS: BMI 29.5
[2023-09-09] MEDS ORDERED: ERYTHROMYCIN 0.5% OPHTHALMIC OINTMENT 3.5 GM TUBE OU ONE (21:42)
[2023-09-09] MEDS ORDERED: ATORVASTATIN CA 20 MG TABLET (FP) PO SCH (22:00)
[2023-09-09] MEDS ORDERED: DONEPEZIL HCL 10 MG TABLET (FP) PO SCH (22:00)
[2023-09-09] MEDS: DONEPEZIL HCL 10 MG TABLET (FP) PO SCH (22:04)
[2023-09-09] MEDS: ATORVASTATIN CA 20 MG TABLET (FP) PO SCH (22:05)
[2023-09-10] MEDS: PANTOPRAZOLE 40 MG TABLET PO SCH (06:44)
[2023-09-10] MEDS ORDERED: PATIENT'S OWN MEDICATION (NON-FORMULARY) (Mirabegron [Myrbetriq] 50 MG) PO SCH (10:00)
[2023-09-10] MEDS: ASPIRIN 81 MG CHEWABLE TABLETS PO SCH (10:23)
[2023-09-10] MEDS: CEFTRIAXONE 1 GM in DEXTROSE 5%-WATER - 50 ML IVPB SCH (11:22)
[2023-09-10] MEDS: ERYTHROMYCIN 0.5% OPHTHALMIC OINTMENT 3.5 GM TUBE OU SCH (11:22)
[2023-09-11] MEDS: ACETAMINOPHEN 1000 MG/100 ML BAG IVPB ONE (02:12)
[2023-09-11] MEDS ORDERED: ACETAMINOPHEN 325 MG TABLET (FP) PO PRN ×2 (18:52→19:19)
[2023-09-12 09:24] LABS: HEMATOCRIT 36.8 % (32.4-45.2); HEMOGLOBIN 11.9 GM/dL (10.7-15.3); MCH 26.7 pg (25.7-33.7); MCHC 32.2 g/dl (32.0-36.0); MEAN CELL VOLUME 82.9 fl (80-96); PLATELET COUNT 373 10^3/uL (134-434); RBC 4.44 M/mm3 (3.60-5.2); RDW 15.8 % (11.6-15.6); WHITE BLOOD COUNT 13.4 K/mm3 (4.0-10.0)
[2023-09-12 09:39] LABS: POTASSIUM 3.9 mmol/L (3.5-5.1)
[2023-09-12 09:40] LABS: CALCIUM 9.4 mg/dL (8.5-10.1)
[2023-09-12 09:41] LABS: BLOOD UREA NITROGEN 12.2 mg/dL (7-18)
[2023-09-12 09:44] LABS: CREATININE 0.9 mg/dL (0.55-1.3)
[2023-09-12] MEDS: AMPICILLIN NA/SULBACTAM NA 3 GM in SODIUM CHLORIDE 100 ML IVPB SCH (12:49)
[2023-09-13 07:23] LABS: HEMATOCRIT 37.9 % (32.4-45.2); HEMOGLOBIN 12.6 GM/dL (10.7-15.3); MCH 27.4 pg (25.7-33.7); MCHC 33.1 g/dl (32.0-36.0); MEAN CELL VOLUME 82.6 fl (80-96); MEAN PLT VOLUME 8.2 fl (7.5-11.1); PLATELET COUNT 357 10^3/uL (134-434); RBC 4.59 M/mm3 (3.60-5.2); RDW 15.9 % (11.6-15.6); WHITE BLOOD COUNT 11.3 K/mm3 (4.0-10.0)
[2023-09-13 07:46] LABS: CALCIUM 9.5 mg/dL (8.5-10.1)
[2023-09-13 07:47] LABS: BLOOD UREA NITROGEN 11.7 mg/dL (7-18)
[2023-09-13 07:50] LABS: CREATININE 0.9 mg/dL (0.55-1.3)
[2023-09-13 09:00] LABS: ANISOCYTOSIS 2+; MACROCYTOSIS 0
[2023-09-13 09:06] LABS: PLATELET ESTIMATE ADEQUATE
[2023-09-14 06:43] LABS: HEMATOCRIT 37.1 % (32.4-45.2); HEMOGLOBIN 11.9 GM/dL (10.7-15.3); MCH 26.8 pg (25.7-33.7); MEAN CELL VOLUME 83.7 fl (80-96); PLATELET COUNT 352 10^3/uL (134-434); RBC 4.43 M/mm3 (3.60-5.2); RDW 15.8 % (11.6-15.6); WHITE BLOOD COUNT 12.3 K/mm3 (4.0-10.0)
[2023-09-14 07:00] LABS: POTASSIUM 3.9 mmol/L (3.5-5.1)
[2023-09-14 07:04] LABS: BLOOD UREA NITROGEN 11.3 mg/dL (7-18)
[2023-09-14 07:07] LABS: CREATININE 0.8 mg/dL (0.55-1.3)
[2023-09-14 07:08] LABS: TOT PROT 5.7 g/dl (6.4-8.2)
[2023-09-14 07:12] LABS: BILIRUBIN,TOTAL 0.4 mg/dL (0.2-1)
[2023-09-14 07:24] LABS: ALBUMIN 2.4 g/dl (3.4-5.0)
[2023-09-14 09:27] LABS: ANISOCYTOSIS 0; HELMET CELLS 0; HOWELL-JOLLY BODIES 0; MACROCYTOSIS 0; OVALOCYTE 0; ROULEAU 0; SICKELED CELLS 0; TARGET CELLS 0; TEAR DROP CELLS 0; TOXIC GRANULATION 0
[2023-09-14] MEDS: D5-1/2NS+10 MEQ KCL - 10 MEQ/1,000 ML INFUS.BAG IV SCH (16:36)
[2023-09-15 12:00] LABS: HEMATOCRIT 37.5 % (32.4-45.2); HEMOGLOBIN 12.3 GM/dL (10.7-15.3); MCH 26.9 pg (25.7-33.7); MCHC 32.9 g/dl (32.0-36.0); MEAN CELL VOLUME 81.9 fl (80-96); MEAN PLT VOLUME 8.3 fl (7.5-11.1); PLATELET COUNT 385 10^3/uL (134-434); RBC 4.58 M/mm3 (3.60-5.2); RDW 16.2 % (11.6-15.6); WHITE BLOOD COUNT 12.1 K/mm3 (4.0-10.0)
[2023-09-15 12:30] LABS: BLOOD UREA NITROGEN 8.5 mg/dL (7-18); CALCIUM 9.9 mg/dL (8.5-10.1); CREATININE 0.8 mg/dL (0.55-1.3); POTASSIUM 4.2 mmol/L (3.5-5.1)
[2023-09-15 12:40] LABS: ANISOCYTOSIS 1+; MACROCYTOSIS 0
[2023-09-15 12:42] LABS: PLATELET ESTIMATE ADEQUATE
[2023-09-15] MEDS: PANTOPRAZOLE SODIUM 40 MG VIAL IVPUSH SCH (15:22)
[2023-09-15] MEDS: AMOX TR/POTASSIUM CLAVULANATE 600 MG/5 ML PO SCH (18:52)
[2023-09-16 08:24] LABS: POTASSIUM 4.1 mmol/L (3.5-5.1)
[2023-09-16 08:26] LABS: BASO % 0.6 % (0-2.0); EOS % 2.7 % (0-4.5); HEMOGLOBIN 11.9 GM/dL (10.7-15.3); LYMPH % 13.6 % (8-40); MCH 26.8 pg (25.7-33.7); MCHC 32.2 g/dl (32.0-36.0); MEAN CELL VOLUME 83.3 fl (80-96); MEAN PLT VOLUME 8.2 fl (7.5-11.1); MONO % 7.8 % (3.8-10.2); NEUT % 75.3 % (42.8-82.8); PLATELET COUNT 352 10^3/uL (134-434); RBC 4.44 M/mm3 (3.60-5.2); RDW 15.8 % (11.6-15.6); WHITE BLOOD COUNT 12.1 K/mm3 (4.0-10.0)
[2023-09-16 08:27] LABS: CALCIUM 9.3 mg/dL (8.5-10.1)
[2023-09-16 08:28] LABS: BLOOD UREA NITROGEN 11.7 mg/dL (7-18)
[2023-09-16 08:31] LABS: CREATININE 0.9 mg/dL (0.55-1.3)
[2023-09-16] MEDS: PANTOPRAZOLE 20 MG TABLET PO SCH (11:03)
[2023-09-17 07:30] LABS: POTASSIUM 4.2 mmol/L (3.5-5.1)
[2023-09-17 07:32] LABS: CALCIUM 9.5 mg/dL (8.5-10.1)
[2023-09-17 07:33] LABS: BLOOD UREA NITROGEN 12.7 mg/dL (7-18)
[2023-09-17 07:35] LABS: HEMATOCRIT 35.8 % (32.4-45.2); HEMOGLOBIN 11.7 GM/dL (10.7-15.3); MCH 26.8 pg (25.7-33.7); MCHC 32.6 g/dl (32.0-36.0); MEAN CELL VOLUME 82.3 fl (80-96); MEAN PLT VOLUME 8.2 fl (7.5-11.1); PLATELET COUNT 368 10^3/uL (134-434); RBC 4.35 M/mm3 (3.60-5.2); RDW 16.2 % (11.6-15.6); WHITE BLOOD COUNT 10.7 K/mm3 (4.0-10.0)
[2023-09-17 07:36] LABS: CREATININE 0.9 mg/dL (0.55-1.3)
[2023-09-17 09:34] LABS: ANISOCYTOSIS 2+; MACROCYTOSIS 0
[2023-09-18 11:25] VITALS: BP 140/71; PULSE 63; RESP 19; TEMP 98.2
== END 2023-09-18 13:26 | DRG 178 ==
LOC: JER 10:30 → JERBED 22:24 → J7W 09-09 15:38 → OBSVTOIN 09-10 13:10 → J7W 09-12 06:42
PROVIDERS: ADMIT Internal Medicine; ATTEND Internal Medicine
DX: J69.0 Pneumonitis due to inhalation of food and vomit (principal); N39.0 Urinary tract infection, site not specified; I10 Essential (primary) hypertension; K21.9 Gastro-esophageal reflux disease without esophagitis; E78.5 Hyperlipidemia, unspecified; F03.90 Unspecified dementia, unspecified severity, without behavioral disturbance, psychotic disturbance, mood disturbance, and anxiety; T18.128A Food in esophagus causing other injury, initial encounter; W44.F3XA Food entering into or through a natural orifice, initial encounter; R77.8 Other specified abnormalities of plasma proteins; H10.9 Unspecified conjunctivitis; K83.8 Other specified diseases of biliary tract; K22.2 Esophageal obstruction; K22.89 Other specified disease of esophagus; Y93.89 Activity, other specified; Y92.89 Other specified places as the place of occurrence of the external cause; Y99.8 Other external cause status
CPT/HCPCS: 0241U-QW; 36415; 71045-TC-FY; 71275-TC; 74230-TC-FY; 80048; 80053; 81003; 82803; 83605; 83735; 83880; 84100; 84484; 85025; 85610; 85730; 86850; 86900; 86901; 87040; 87086; 87186; 88300-TC; 92611-GN; 93005; 93010; 97116-GP; 97161-GP; 99285-25; G0378; J0131; Q9967

== ENCOUNTER 2023-10-26 05:45 | Inpatient (IN) | payer OTHER ==
[2023-10-26 08:18] LABS: VENOUS BASE EXCESS -3.2 mmol/L (-2-2); VENOUS O2 SATURATION 76.6 % (70-80); VENOUS PCO2 32.2 mmHg (38-52); VENOUS PH 7.419 (7.310-7.410)
[2023-10-26 08:19] LABS: HEMATOCRIT 35.2 % (32.4-45.2); HEMOGLOBIN 11.2 GM/dL (10.7-15.3); MCH 26.2 pg (25.7-33.7); MCHC 31.8 g/dl (32.0-36.0); MEAN CELL VOLUME 82.6 fl (80-96); MEAN PLT VOLUME 8.8 fl (7.5-11.1); PLATELET COUNT 532 10^3/uL (134-434); RBC 4.26 M/mm3 (3.60-5.2); RDW 17.1 % (11.6-15.6); WHITE BLOOD COUNT 19.3 K/mm3 (4.0-10.0)
[2023-10-26 08:25] LABS: INR 1.28 (0.83-1.09); PROTHROMBIN TIME (PATIENT) 14.6 SEC (9.7-13.0)
[2023-10-26 08:27] LABS: ACTIVATED PTT 33.6 SECONDS (25.2-36.5)
[2023-10-26 08:36] LABS: POTASSIUM 4.1 mmol/L (3.5-5.1)
[2023-10-26 08:37] LABS: CALCIUM 10.3 mg/dL (8.5-10.1)
[2023-10-26 08:38] LABS: ALBUMIN 2.7 g/dl (3.4-5.0)
[2023-10-26 08:41] LABS: CREATININE 0.9 mg/dL (0.55-1.3)
[2023-10-26] MEDS: AZITHROMYCIN IVPB 500 MG in DEXTROSE 5%-WATER - 250 ML IVPB ONE (08:42)
[2023-10-26 08:43] LABS: BILIRUBIN,TOTAL 1.1 mg/dL (0.2-1); TOT PROT 6.5 g/dl (6.4-8.2)
[2023-10-26] MEDS ORDERED: ACETAMINOPHEN INJECTION 100 ML IVPB ONE (08:43)
[2023-10-26] MEDS ORDERED: PIPERACILLIN/TAZOB 4.5 GM 4.5 GM/100 ML BAG IVPB ONE ×2 (08:43→16:47)
[2023-10-26] MEDS: PIPERACILLIN/TAZOB 4.5 GM 4.5 GM in DEXTROSE 5%-WATER 100 ML IVPB ONE (08:59)
[2023-10-26] MEDS: ACETAMINOPHEN 1000 MG/100 ML BAG IVPB ONE (08:59)
[2023-10-26] MEDS: LACTATED RINGERS SOLUTION 1000 ML INFUS.BAG IV ONE (08:59)
[2023-10-26 09:07] LABS: N-TERMINAL BNP 16539.1 pg/ml (5-450)
[2023-10-26] MEDS ORDERED: ASPIRIN 300 MG SUPP.RECT RC ONE (09:22)
[2023-10-26 09:57] LABS: ANISOCYTOSIS 0; MACROCYTOSIS 0; ROULEAU 1+
[2023-10-26 10:00] LABS: PLATELET ESTIMATE INCREASED
[2023-10-26] MEDS: ASPIRIN 300 MG SUPP.RECT RC ONE (10:25)
[2023-10-26] MEDS: PIPERACILLIN/TAZOB 4.5 GM 4.5 GM in DEXTROSE 5%-WATER 100 ML IVPB SCH (17:18)
[2023-10-26] MEDS ORDERED: VANCOMYCIN 2,000 MG in DEXTROSE 5%-WATER - 500 ML IVPB ONE (20:35)
[2023-10-26] MEDS: VANCOMYCIN/WATER 2 GRAMS 2,000 MG/400 ML PIGGYBACK IVPB ONE (21:49)
[2023-10-27] MEDS: DONEPEZIL HCL 10 MG TABLET (FP) PO SCH (00:03)
[2023-10-27] MEDS: MEMANTINE HCL 10 MG TABLET (FP) PO SCH (00:03)
[2023-10-27] MEDS: METOPROLOL TARTRATE 25 MG TABLET (FP) PO SCH (00:03)
[2023-10-27] MEDS: ATORVASTATIN CA 20 MG TABLET (FP) PO SCH (00:03)
[2023-10-27] MEDS ORDERED: ACETAMINOPHEN 1000 MG/100 ML BAG IVPB PRN (00:50)
[2023-10-27] MEDS ORDERED: PANTOPRAZOLE 40 MG TABLET PO SCH (07:00)
[2023-10-27 08:14] LABS: EPI CELLS >36 /uL (0-25.1); HYALINE CASTS 2 /uL (0-3.1); PH,URINE 5.5 (5.0-8.0); URINE APPEARANCE CLOUDY; URINE BACTERIA 3057 /uL (0-1359); URINE BILIRUBIN 1+ (NEGATIVE); URINE COLOR DK YELLOW; URINE GLUCOSE (UA) NEGATIVE (NEGATIVE); URINE KETONE TRACE (NEGATIVE); URINE LEUK ESTERASE 1+ (NEGATIVE); URINE NITRITE NEGATIVE (NEGATIVE); URINE PROTEIN 2+ (NEGATIVE); URINE RBC 16 /uL (0-23.9); URINE WBC 90 /uL (0-25.8)
[2023-10-27] MEDS: PANTOPRAZOLE SODIUM 40 MG VIAL IVPUSH SCH (09:49)
[2023-10-27 10:44] LABS: HEMATOCRIT 34.7 % (32.4-45.2); HEMOGLOBIN 10.8 GM/dL (10.7-15.3); MCH 25.7 pg (25.7-33.7); MCHC 31.2 g/dl (32.0-36.0); MEAN CELL VOLUME 82.5 fl (80-96); MEAN PLT VOLUME 8.6 fl (7.5-11.1); PLATELET COUNT 506 10^3/uL (134-434); RBC 4.21 M/mm3 (3.60-5.2); RDW 17.3 % (11.6-15.6); WHITE BLOOD COUNT 20.1 K/mm3 (4.0-10.0)
[2023-10-27 11:08] LABS: POTASSIUM 3.9 mmol/L (3.5-5.1)
[2023-10-27 11:11] LABS: ALBUMIN 2.4 g/dl (3.4-5.0); CALCIUM 10.6 mg/dL (8.5-10.1); MAGNESIUM 2.1 mg/dL (1.8-2.4)
[2023-10-27 11:12] LABS: BLOOD UREA NITROGEN 30.3 mg/dL (7-18)
[2023-10-27 11:16] LABS: PHOSPHOROUS 3.7 mg/dL (2.5-4.9); TOT PROT 6.2 g/dl (6.4-8.2)
[2023-10-27 11:17] LABS: BILIRUBIN,TOTAL 0.6 mg/dL (0.2-1)
[2023-10-27 11:19] LABS: LACTIC ACID 3.4 mmol/L (0.4-2.0)
[2023-10-27 11:30] LABS: ANISOCYTOSIS 0; MACROCYTOSIS 0
[2023-10-27 11:33] LABS: PLATELET ESTIMATE INCREASED
[2023-10-27] MEDS: POLYETHYLENE GLYCOL (HEALTHYLAX) 3350 17 GM PACKET PO SCH (11:38)
[2023-10-27] MEDS: ENOXAPARIN NA (PORCINE) 40 MG/0.4 ML DISP.SYRIN SQ SCH (11:41)
[2023-10-27] MEDS: VANCOMYCIN/WATER 1250 MG 1,250 MG/250 ML BAG IVPB SCH ×2 (11:41→12:42)
[2023-10-27] MEDS: MUPIROCIN 2% TOPICAL OINTMENT FOR DECOLONIZATION NS SCH (12:33)
[2023-10-27] MEDS: ALBUTEROL SO4 2.5/IPRATROPIUM 0.5 INH SOL 3 ML VIAL.NEB. NEB SCH (15:18)
[2023-10-27 15:43] LABS: LACTIC ACID 3.9 mmol/L (0.4-2.0)
[2023-10-27] MEDS: ALBUTEROL SO4 2.5/IPRATROPIUM 0.5 INH SOL 3 ML VIAL.NEB. NEB ONE (15:47)
[2023-10-27] MEDS: INSULIN ASPART SLIDING SCALE (NOVOLOG) 1 VIAL SQ SCH (17:07)
[2023-10-27] MEDS: LACTATED RINGERS SOLUTION 1,000 ML/1,000 ML INFUS.BAG IV SCH (17:07)
[2023-10-27 19:02] LABS: LACTIC ACID 2.6 mmol/L (0.4-2.0)
[2023-10-27 22:24] LABS: LACTIC ACID 2.7 mmol/L (0.4-2.0)
[2023-10-27] MEDS: CHLORHEXIDINE GLUCONATE 4% CLEANSER FOR DECOLONIZATION TP SCH (22:28)
[2023-10-28 07:09] LABS: HEMATOCRIT 35.2 % (32.4-45.2); MCH 26.3 pg (25.7-33.7); MCHC 31.2 g/dl (32.0-36.0); MEAN CELL VOLUME 84.4 fl (80-96); MEAN PLT VOLUME 8.6 fl (7.5-11.1); PLATELET COUNT 470 10^3/uL (134-434); RBC 4.17 M/mm3 (3.60-5.2); RDW 17.6 % (11.6-15.6)
[2023-10-28 07:26] LABS: POTASSIUM 4.4 mmol/L (3.5-5.1)
[2023-10-28 07:28] LABS: ALBUMIN 2.4 g/dl (3.4-5.0); BLOOD UREA NITROGEN 28.9 mg/dL (7-18); CALCIUM 10.4 mg/dL (8.5-10.1); MAGNESIUM 1.8 mg/dL (1.8-2.4)
[2023-10-28 07:31] LABS: PHOSPHOROUS 2.8 mg/dL (2.5-4.9)
[2023-10-28 07:32] LABS: CREATININE 1.1 mg/dL (0.55-1.3)
[2023-10-28 07:33] LABS: BILIRUBIN,TOTAL 0.7 mg/dL (0.2-1); TOT PROT 5.8 g/dl (6.4-8.2)
[2023-10-28 10:36] LABS: LACTIC ACID 2.1 mmol/L (0.4-2.0)
[2023-10-29 15:30] LABS: HEMATOCRIT 39.3 % (32.4-45.2); HEMOGLOBIN 12.5 GM/dL (10.7-15.3); MCH 26.2 pg (25.7-33.7); MCHC 31.8 g/dl (32.0-36.0); MEAN CELL VOLUME 82.5 fl (80-96); MEAN PLT VOLUME 8.6 fl (7.5-11.1); PLATELET COUNT 443 10^3/uL (134-434); RBC 4.77 M/mm3 (3.60-5.2); WHITE BLOOD COUNT 12.6 K/mm3 (4.0-10.0)
[2023-10-29 15:44] LABS: POTASSIUM 3.8 mmol/L (3.5-5.1)
[2023-10-29 15:46] LABS: CALCIUM 9.7 mg/dL (8.5-10.1)
[2023-10-29 15:47] LABS: ALBUMIN 2.4 g/dl (3.4-5.0); BLOOD UREA NITROGEN 19.6 mg/dL (7-18)
[2023-10-29 15:50] LABS: CREATININE 0.8 mg/dL (0.55-1.3)
[2023-10-29 15:51] LABS: BILIRUBIN,TOTAL 0.9 mg/dL (0.2-1)
[2023-10-29 15:52] LABS: TOT PROT 6.1 g/dl (6.4-8.2)
[2023-10-30 09:13] LABS: HEMATOCRIT 31.7 % (32.4-45.2); HEMOGLOBIN 10.4 GM/dL (10.7-15.3); MCH 26.5 pg (25.7-33.7); MCHC 32.6 g/dl (32.0-36.0); MEAN CELL VOLUME 81.3 fl (80-96); MEAN PLT VOLUME 8.3 fl (7.5-11.1); PLATELET COUNT 409 10^3/uL (134-434); RDW 17.3 % (11.6-15.6); WHITE BLOOD COUNT 12.8 K/mm3 (4.0-10.0)
[2023-10-30 09:41] LABS: POTASSIUM 3.6 mmol/L (3.5-5.1)
[2023-10-30 09:59] LABS: ALBUMIN 2.2 g/dl (3.4-5.0); CALCIUM 9.3 mg/dL (8.5-10.1)
[2023-10-30 10:00] LABS: BLOOD UREA NITROGEN 13.5 mg/dL (7-18); MAGNESIUM 1.8 mg/dL (1.8-2.4)
[2023-10-30 10:03] LABS: CREATININE 0.6 mg/dL (0.55-1.3)
[2023-10-30 10:04] LABS: TOT PROT 5.1 g/dl (6.4-8.2)
[2023-10-30] MEDS: FUROSEMIDE 40 MG/4 ML INJECTABLE VIAL IVPUSH SCH (11:19)
[2023-10-30 15:08] LABS: ARTERIAL BLD GAS O2 SATURATION 96.9 % (95-98); ARTERIAL BLOOD GAS BASE EXCESS 3.1 mmol/L (-2-2); ARTERIAL BLOOD GAS PO2 84.3 mmHg (80-100)
[2023-10-30 15:09] LABS: ALLENS TEST POSITIVE
[2023-10-30] MEDS: SODIUM CHLORIDE 1,000 ML IV SCH (16:52)
[2023-11-01 09:47] LABS: HEMATOCRIT 32.5 % (32.4-45.2); HEMOGLOBIN 10.3 GM/dL (10.7-15.3); MCHC 31.5 g/dl (32.0-36.0); MEAN CELL VOLUME 82.4 fl (80-96); MEAN PLT VOLUME 8.4 fl (7.5-11.1); PLATELET COUNT 403 10^3/uL (134-434); RBC 3.95 M/mm3 (3.60-5.2); RDW 17.2 % (11.6-15.6); WHITE BLOOD COUNT 13.4 K/mm3 (4.0-10.0)
[2023-11-01 10:03] LABS: POTASSIUM 3.3 mmol/L (3.5-5.1)
[2023-11-01 10:07] LABS: CALCIUM 9.1 mg/dL (8.5-10.1)
[2023-11-01 10:08] LABS: ALBUMIN 2.2 g/dl (3.4-5.0); BLOOD UREA NITROGEN 8.8 mg/dL (7-18)
[2023-11-01 10:11] LABS: CREATININE 0.6 mg/dL (0.55-1.3); TOT PROT 5.3 g/dl (6.4-8.2)
[2023-11-01] MEDS: THIAMINE HCL 200 MG/2 ML VIAL IVPB SCH (14:39)
[2023-11-01] MEDS: POTASSIUM CHLORIDE ORAL LIQUID 20 MEQ/15 ML PO ONE (14:39)
[2023-11-01] MEDS: AMINO ACIDS/PROTEIN HYDROLYS 30 ML LIQUID.PKT PO SCH (15:27)
[2023-11-01] MEDS: POTASSIUM CHLORIDE 20 MEQ in AMINO ACIDS 4.25%/D5W 1,000 ML IV SCH (15:54)
[2023-11-01] MEDS: CYANOCOBALAMIN (VITAMIN B-12) 1000 MCG/1 ML VIAL IM SCH (15:54)
[2023-11-01 23:53] VITALS: BMI 30.3
[2023-11-02] MEDS ORDERED: SODIUM CHLORIDE NASAL SPRAY 44 ML BOTTLE NS PRN (12:07)
[2023-11-02] MEDS: DRONABINOL 2.5 MG CAPSULE PO SCH (13:33)
[2023-11-03 09:38] LABS: POTASSIUM 3.7 mmol/L (3.5-5.1)
[2023-11-03 09:39] LABS: CALCIUM 9.7 mg/dL (8.5-10.1)
[2023-11-03 09:40] LABS: BLOOD UREA NITROGEN 11.2 mg/dL (7-18)
[2023-11-03 09:43] LABS: CREATININE 0.6 mg/dL (0.55-1.3)
[2023-11-03 13:08] LABS: HEMATOCRIT 36.1 % (32.4-45.2); HEMOGLOBIN 11.4 GM/dL (10.7-15.3); MCH 25.8 pg (25.7-33.7); MCHC 31.7 g/dl (32.0-36.0); MEAN CELL VOLUME 81.6 fl (80-96); PLATELET COUNT 419 10^3/uL (134-434); RBC 4.42 M/mm3 (3.60-5.2); RDW 17.3 % (11.6-15.6); WHITE BLOOD COUNT 14.5 K/mm3 (4.0-10.0)
[2023-11-03 13:26] LABS: ANISOCYTOSIS 0; MACROCYTOSIS 0
[2023-11-03 13:28] LABS: PLATELET ESTIMATE ADEQUATE
[2023-11-03 14:00] LABS: POTASSIUM 3.3 mmol/L (3.5-5.1)
[2023-11-03 14:02] LABS: ALBUMIN 2.3 g/dl (3.4-5.0); BLOOD UREA NITROGEN 10.7 mg/dL (7-18); CALCIUM 9.4 mg/dL (8.5-10.1)
[2023-11-03] MEDS: FUROSEMIDE 40 MG/4 ML INJECTABLE VIAL IVPUSH ONE (14:04)
[2023-11-03 14:06] LABS: BILIRUBIN,TOTAL 1.1 mg/dL (0.2-1); CREATININE 0.6 mg/dL (0.55-1.3); TOT PROT 5.7 g/dl (6.4-8.2)
[2023-11-04] MEDS: ACETAMINOPHEN 325 MG TABLET (FP) PO ONE (01:19)
[2023-11-04] MEDS: MELATONIN 5 MG TABLETS PO ONE (01:21)
[2023-11-04 09:40] LABS: POTASSIUM 3.1 mmol/L (3.5-5.1)
[2023-11-04 09:44] LABS: CALCIUM 9.6 mg/dL (8.5-10.1)
[2023-11-04 09:45] LABS: BLOOD UREA NITROGEN 12.6 mg/dL (7-18)
[2023-11-04 09:48] LABS: CREATININE 0.6 mg/dL (0.55-1.3)
[2023-11-04] MEDS: POTASSIUM CHLORIDE ORAL LIQUID 20 MEQ/15 ML PO ONE ×2 (15:35→15:47)
[2023-11-04] MEDS: KCL 10 MEQ IVPB 10 MEQ/100 ML INFUS.BAG IVPB SCH (15:36)
[2023-11-04] MEDS: FUROSEMIDE 40 MG/4 ML INJECTABLE VIAL IVPUSH ONE ×2 (15:42→15:51)
[2023-11-04] MEDS ORDERED: SODIUM CHLORIDE 1,000 ML with POTASSIUM CHLORIDE 20 MEQ IV SCH (15:45)
[2023-11-04] MEDS: SODIUM CHLORIDE 0.9%/KCL 20 MEQ/1,000 ML INFUS.BAG IV SCH (15:51)
[2023-11-05] MEDS: MELATONIN 5 MG TABLETS PO ONE (03:22)
[2023-11-05] MEDS: ACETAMINOPHEN 325 MG TABLET (FP) PO ONE (03:23)
[2023-11-05 09:10] LABS: POTASSIUM 3.2 mmol/L (3.5-5.1)
[2023-11-05 09:22] LABS: CALCIUM 9.6 mg/dL (8.5-10.1)
[2023-11-05 09:23] LABS: BLOOD UREA NITROGEN 12.4 mg/dL (7-18)
[2023-11-05 09:26] LABS: CREATININE 0.6 mg/dL (0.55-1.3)
[2023-11-05] MEDS: PANTOPRAZOLE 40 MG TABLET PO SCH (10:33)
[2023-11-05] MEDS: POTASSIUM CHLORIDE ORAL LIQUID 20 MEQ/15 ML PO ONE (12:36)
[2023-11-05] MEDS: KCL 10 MEQ IVPB 10 MEQ/100 ML INFUS.BAG IVPB SCH (12:36)
[2023-11-05] MEDS: MAG HYDROX/ALH/SMC/DPHA/LIDO 240 ML MOUTHWASH MM SCH (18:05)
[2023-11-06 09:38] LABS: BASO % 0.5 % (0-2.0); EOS % 0.2 % (0-4.5); HEMATOCRIT 37.9 % (32.4-45.2); LYMPH % 4.9 % (8-40); MCH 25.6 pg (25.7-33.7); MCHC 31.7 g/dl (32.0-36.0); MEAN CELL VOLUME 80.8 fl (80-96); MEAN PLT VOLUME 7.9 fl (7.5-11.1); NEUT % 90.4 % (42.8-82.8); PLATELET COUNT 461 10^3/uL (134-434); RDW 18.1 % (11.6-15.6); WHITE BLOOD COUNT 18.5 K/mm3 (4.0-10.0)
[2023-11-06] MEDS: FUROSEMIDE 40 MG TABLET (FP) PO SCH (09:43)
[2023-11-06 09:58] LABS: POTASSIUM 3.1 mmol/L (3.5-5.1)
[2023-11-06 10:02] LABS: CALCIUM 10.2 mg/dL (8.5-10.1)
[2023-11-06 10:03] LABS: ALBUMIN 2.6 g/dl (3.4-5.0); BLOOD UREA NITROGEN 13.8 mg/dL (7-18)
[2023-11-06 10:06] LABS: CREATININE 0.6 mg/dL (0.55-1.3)
[2023-11-06 10:07] LABS: BILIRUBIN,TOTAL 1.5 mg/dL (0.2-1); TOT PROT 6.2 g/dl (6.4-8.2)
[2023-11-06] MEDS: DRONABINOL 2.5 MG CAPSULE PO SCH (17:43)
[2023-11-07 09:23] LABS: EPI CELLS >36 /uL (0-25.1); HYALINE CASTS 2 /uL (0-3.1); PH,URINE 5.5 (5.0-8.0); URINE APPEARANCE CLOUDY; URINE BACTERIA >9,000 /uL (0-1359); URINE BILIRUBIN NEGATIVE (NEGATIVE); URINE COLOR DK YELLOW; URINE GLUCOSE (UA) NEGATIVE (NEGATIVE); URINE KETONE TRACE (NEGATIVE); URINE LEUK ESTERASE 2+ (NEGATIVE); URINE NITRITE NEGATIVE (NEGATIVE); URINE PROTEIN 1+ (NEGATIVE); URINE RBC 15 /uL (0-23.9); URINE WBC 330 /uL (0-25.8)
[2023-11-07 10:45] LABS: URINE CRYSTALS CA OXALATE MODERATE /hpf
[2023-11-07 19:18] LABS: EPI CELLS 2 /uL (0-25.1); HYALINE CASTS 3 /uL (0-3.1); PH,URINE 5.5 (5.0-8.0); URINE APPEARANCE CLOUDY; URINE BACTERIA >9,000 /uL (0-1359); URINE BILIRUBIN 1+ (NEGATIVE); URINE COLOR DK YELLOW; URINE GLUCOSE (UA) NEGATIVE (NEGATIVE); URINE KETONE 1+ (NEGATIVE); URINE LEUK ESTERASE 2+ (NEGATIVE); URINE NITRITE NEGATIVE (NEGATIVE); URINE PROTEIN 1+ (NEGATIVE); URINE RBC 11 /uL (0-23.9); URINE WBC 332 /uL (0-25.8)
[2023-11-07 19:38] LABS: URINE CRYSTALS PRESENT /hpf
[2023-11-07 20:07] LABS: BASO % 0.2 % (0-2.0); EOS % 0.8 % (0-4.5); HEMOGLOBIN 12.3 GM/dL (10.7-15.3); LYMPH % 6.5 % (8-40); MCH 25.9 pg (25.7-33.7); MCHC 31.6 g/dl (32.0-36.0); MEAN CELL VOLUME 82.2 fl (80-96); MEAN PLT VOLUME 8.2 fl (7.5-11.1); MONO % 3.8 % (3.8-10.2); NEUT % 88.7 % (42.8-82.8); PLATELET COUNT 451 10^3/uL (134-434); RBC 4.74 M/mm3 (3.60-5.2); RDW 18.4 % (11.6-15.6); WHITE BLOOD COUNT 15.8 K/mm3 (4.0-10.0)
[2023-11-07 20:29] LABS: POTASSIUM 4.2 mmol/L (3.5-5.1)
[2023-11-07 20:31] LABS: CALCIUM 10.2 mg/dL (8.5-10.1)
[2023-11-07 20:32] LABS: ALBUMIN 2.7 g/dl (3.4-5.0); BLOOD UREA NITROGEN 15.8 mg/dL (7-18)
[2023-11-07 20:35] LABS: CREATININE 0.7 mg/dL (0.55-1.3)
[2023-11-07 20:37] LABS: BILIRUBIN,TOTAL 1.4 mg/dL (0.2-1); TOT PROT 6.9 g/dl (6.4-8.2)
[2023-11-07] MEDS: PIPERACILLIN/TAZOB 3.375 GM 3.375 GM in DEXTROSE 5%-WATER - 50 ML IVPB SCH (22:04)
[2023-11-08 09:22] LABS: BASO % 0.5 % (0-2.0); EOS % 1.5 % (0-4.5); HEMATOCRIT 37.3 % (32.4-45.2); HEMOGLOBIN 11.9 GM/dL (10.7-15.3); MCH 25.7 pg (25.7-33.7); MCHC 31.9 g/dl (32.0-36.0); MEAN CELL VOLUME 80.7 fl (80-96); MONO % 4.7 % (3.8-10.2); NEUT % 86.3 % (42.8-82.8); PLATELET COUNT 436 10^3/uL (134-434); RBC 4.62 M/mm3 (3.60-5.2); RDW 17.6 % (11.6-15.6)
[2023-11-08 09:29] LABS: CALCIUM 10.2 mg/dL (8.5-10.1); POTASSIUM 3.3 mmol/L (3.5-5.1)
[2023-11-08 09:30] LABS: BLOOD UREA NITROGEN 16.2 mg/dL (7-18)
[2023-11-08 09:34] LABS: CREATININE 0.7 mg/dL (0.55-1.3)
[2023-11-08 14:21] VITALS: BP 158/95; PULSE 69; RESP 18; TEMP 97.9
[2023-11-08] MEDS: KCL 10 MEQ IVPB 10 MEQ/100 ML INFUS.BAG IVPB SCH (14:40)
== END 2023-11-08 16:35 | DRG 871 ==
LOC: JER 05:45 → JERBED 10:08 → JICU 21:55 → J6S 10-28 15:26
PROVIDERS: ADMIT Internal Medicine Pulmonary Disease; ATTEND Internal Medicine
DX: A41.9 Sepsis, unspecified organism (principal); J18.9 Pneumonia, unspecified organism; J96.01 Acute respiratory failure with hypoxia; N39.0 Urinary tract infection, site not specified; N17.9 Acute kidney failure, unspecified; E44.0 Moderate protein-calorie malnutrition; E87.20 Acidosis, unspecified; F03.90 Unspecified dementia, unspecified severity, without behavioral disturbance, psychotic disturbance, mood disturbance, and anxiety; K21.9 Gastro-esophageal reflux disease without esophagitis; R62.7 Adult failure to thrive; B96.1 Klebsiella pneumoniae [K. pneumoniae] as the cause of diseases classified elsewhere; E78.5 Hyperlipidemia, unspecified; N18.30 Chronic kidney disease, stage 3 unspecified; E66.9 Obesity, unspecified; Z68.30 Body mass index [BMI] 30.0-30.9, adult; I12.9 Hypertensive chronic kidney disease with stage 1 through stage 4 chronic kidney disease, or unspecified chronic kidney disease
CPT/HCPCS: 0241U-QW; 36415; 36600; 71045-TC-FY; 71250-TC; 80048; 80053; 80061; 81003; 82308; 82570; 82803; 82962; 83036; 83605; 83735; 83880; 84100; 84133; 84484; 85025; 85027; 85610; 85730; 86140; 87040; 87086; 87186; 93005; 93010; 93306-TC; 94640; 94761; 97161-GP; 99285-25; J0131